=== PATIENT | male | born 1975 | race Caucasian/White ===

== ENCOUNTER 2016-04-09 23:04 | Emergency (ER) | payer MEDICARE, MEDICAID ==
[~2016-04-09] VITALS: Ht 180.3 cm; Wt 76.0 kg
[2016-04-09] MEDS ORDERED: IBUPROFEN 600 MG TAB As Ordered ONE (23:25)
[2016-04-09] MEDS ORDERED: MECLIZINE 12.5 MG TAB As Ordered ONE (23:25)
[2016-04-09] MEDS ORDERED: AUGMENTIN 875 MG TAB As Ordered ONE (23:25)
[2016-04-09] MEDS ORDERED: FLUTICASONE PROP 0.05% NASAL SPRAY 16 GM (FLONASE) SCH (23:45)
--- NOTE | 2016-04-10 00:15 | EDDOCDS ---
Physician Documentation [facility] Name: Salomon Pike Age: 41 yrs Sex: Male : 1975 Arrival Date: 04/09/2016 Time: 23:04 Bed Triage 2 Private MD: Raisa Lynch M. Disposition: 04/09/16 23:40 Discharged to Home/Self Care. Impression: Acute frontal sinusitis, Benign paroxysmal vertigo, bilateral. - Condition is Stable. - Discharge Instructions: Benign Positional Vertigo, Sinus Headache, Sinusitis, Adult. - Prescriptions for Augmentin 875- 125 mg Oral Tablet - take 1 tablet by ORAL route every 12 hours for 10 days; 20 tablet. Meclizine 25 mg Oral Tablet - take 1 tablet by ORAL route every 8 hours As needed; 30 tablet. Fluticasone 50 mcg/actuation Nasal [place], Suspension - inhale 1 spray by INTRANASAL route 2 times per day; 1 bottle. - Medication Reconciliation, Local Pharmacy Hours form. - Follow up: Raisa Lynch; When: Call to arrange an appointment; Reason: Recheck today's complaints, Continuance of care. - Problem is new. - Symptoms are unchanged. Historical: - Allergies: No known drug Allergies; - Home Meds: 1. Proventil HFA 90 mcg/actuation inhalation HFAA 2 puffs every 6 hours as needed 2. Vitamin D 2000u Oral 2000 unit daily - PMHx: none; - PSHx: Appendectomy; - Social history: Smoking status: Patient states was never smoker of tobacco. No barriers to communication noted, The patient speaks fluent German. - Family history: Not pertinent. - : The pt / caregiver states he / she is not on anticoagulants. Home medication list is obtained from the patient. - Exposure Risk Screening:: None identified. Vital Signs: 04/09 23:06 BP 173 / 86; Pulse 84; Resp 16; Temp 96.7(O); Pulse Ox 98% on R/A; Weight 76 kg / elp 167.55 lbs; Height 71 in. (180.34 cm); 23:06 Body Mass Index 23.37 (76.00 kg, 180.34 cm) elp MDM: 23:23 Ibuprofen 600 mg PO once ordered. mo1 23:23 Amoxicillin-Clavulanate 875 mg 1 tabs PO once ordered. mo1 23:23 Flonase [place] 50 mcg 2 sprays Intranasal once ordered. mo1 23:23 Meclizine 25 mg PO once ordered. mo1 23:40 Financial registration complete. hs2 Administered Medications: 23:33 Drug: Ibuprofen 600 mg [ibuprofen 600 mg tablet (1 tabs)] Route: PO; jmb 23:33 Drug: Amoxicillin-Clavulanate 1 tabs [amoxicillin 875 mg-potassium clavulanate 125 mg jmb tablet (1 tabs)] Route: PO; 23:33 Drug: Meclizine 25 mg [meclizine 12.5 mg tablet (2 tabs)] Route: PO; b 23:57 Drug: Flonase [place] 50 mcg 2 sprays Route: Intranasal; Site: both nares; b Signatures: Boom Huggins PA PA mo1 Silvano Armas RN RN elbab Anuradha Roth RN RN af2 Gilma Joyce, Reg Reg hs2 MTDD
--- NOTE | 2016-04-10 00:15 | EDDOCDS ---
Nurse's Notes [facility] Name: Salomon Pike Age: 41 yrs Sex: Male : 1975 Arrival Date: 04/09/2016 Time: 23:04 Bed Triage 2 Private MD: Raisa Lynch M. Diagnosis: Acute frontal sinusitis;Benign paroxysmal vertigo, bilateral Presentation: 04/09 23:08 Presenting complaint: Patient states: cough, "when I tried to lay down the room is af2 spinning.". Adult Sepsis Screening: The patient does not have new or worsening altered mentation. Patient's respiratory rate is less than 22. Systolic blood pressure is greater than 100. Patient has a qSOFA score of 0- Negative Sepsis Screen. Suicide/Homicide risk assessment- the patient denies having any suicidal and/or homicidal ideations and does not present with any other emotional, behavioral or mental health complaints. Status: Patient is not a it service technician or dependent. Transition of care: patient was not received from another setting of care. 23:08 Acuity: JEFFERSON Level 4 af2 23:08 Method Of Arrival: Walkin/Carried/Asstd af2 Triage Assessment: 23:10 General: Appears in no apparent distress, Behavior is cooperative. Pain: Location: af2 chest Pain currently is 10 out of 10 on a pain scale. Pt Declines HIV testing. Respiratory: Airway is patent Respiratory effort is even, unlabored. 23:11 General: pt seen for same thing on 04/02/16. af2 Historical: - Allergies: No known drug Allergies; - Home Meds: 1. Proventil HFA 90 mcg/actuation inhalation HFAA 2 puffs every 6 hours as needed 2. Vitamin D 2000u Oral 2000 unit daily - PMHx: none; - PSHx: Appendectomy; - Social history: Smoking status: Patient states was never smoker of tobacco. No barriers to communication noted, The patient speaks fluent Japanese. - Family history: Not pertinent. - : The pt / caregiver states he / she is not on anticoagulants. Home medication list is obtained from the patient. - Exposure Risk Screening:: None identified. Screenin:43 Screening information is obtained from the patient. Fall risk: No risks identified. jmb Assistance ADL's: requires no assistance with activities of daily living. Abuse/DV Screen: The patient / caregiver reports he/she is: not in a situation that causes fear, pain or injury. Nutritional screening: No deficits noted. Advance Directives: Currently, there is no health care proxy. There is no active DNR order. There is no living will. There is no Power of Homogenizer Operator. home support is adequate. Assessment: 23:43 General: Patient instructed on discharge instructions. Patient asked if there were any jmb questions regarding discharge, patient stated no. Patient signed discharge instructions. Patient discharged in stable condition. . Vital Signs: 23:06 BP 173 / 86; Pulse 84; Resp 16; Temp 96.7(O); Pulse Ox 98% on R/A; Weight 76 kg; Height elp 71 in. (180.34 cm); 23:06 Body Mass Index 23.37 (76.00 kg, 180.34 cm) el Vitals: 23:06 Log In Time: April 09, 2016 at 23:04. elp ED Course: 23:05 Patient visited by Flaquita Hanson PCA. elp 23:05 Raisa Lynch is Private Physician. elp 23:05 Patient moved to Waiting elp 23:07 Patient moved to Pre RCE elp 23:09 Triage Initiated af2 23:11 Patient visited by Anuradha Roth RN. af2 23:12 Patient moved to Triage 2 af2 23:14 [facility] mo1 23:14 Giuseppe Worthington DO is Attending Physician. mo1 23:22 Patient visited by Boom Huggins PA. mo1 23:39 Raisa Lynch is Referral Physician. mo1 23:43 The patient / caregiver is instructed regarding the plan of care and ED course. jmb 23:43 No IV's were initiated during this patient's visit. No procedures done that require jmb assistance. Administered Medications: 23:33 Drug: Ibuprofen 600 mg [ibuprofen 600 mg tablet (1 tabs)] Route: PO; jmb 23:33 Drug: Amoxicillin-Clavulanate 1 tabs [amoxicillin 875 mg-potassium clavulanate 125 mg jmb tablet (1 tabs)] Route: PO; 23:33 Drug: Meclizine 25 mg [meclizine 12.5 mg tablet (2 tabs)] Route: PO; jmb 23:57 Drug: Flonase [place] 50 mcg 2 sprays Route: Intranasal; Site: both nares; jmb Order Results: There are currently no results for this order. Outcome: 23:40 Discharge ordered by Provider. mo1 23:43 Discharge Assessment: Patient awake, alert and oriented x 3. No cognitive and/or jmb functional deficits noted. Patient verbalized understanding of disposition instructions. Patient awake and alert. obeys commands, Oriented to person, place and time. Patient verbalized understanding of disposition instructions. Patient has no functional deficits. patient administered narcotics - no. The following High Risk Discharge criteria are identified: None. Discharged to home ambulatory. Condition: stable. Discharge instructions given to patient, Instructed on discharge instructions, follow up and referral plans. Demonstrated understanding of instructions, medications, Pt was receptive of discharge instructions/ teaching. No special radiology studies were completed. Property sent home with patient. 04/10 00:15 Patient left the ED. flor Signatures: Boom Huggins PA PA mo1 Flaquita Hanson, [employer] elp Silvano ArmasRN RN Anuradha Baltazar,RN RN af2 Corrections: (The following items were deleted from the chart) 04/09 23:07 23:06 BP 173 / 86; Pulse 84bpm; Resp 16bpm; Pulse Ox 98% RA; Temp 96.7F Oral; elp elp MTDD
--- NOTE | 2016-04-12 01:15 | EDDOCDS ---
Physician Documentation [facility] Name: Salomon Pike Age: 41 yrs Sex: Male : 1975 Arrival Date: 04/09/2016 Time: 23:04 Bed Triage 2 Private MD: Raisa Lynch M. Disposition: 04/09/16 23:40 Discharged to Home/Self Care. Impression: Acute frontal sinusitis, Benign paroxysmal vertigo, bilateral. - Condition is Stable. - Discharge Instructions: Benign Positional Vertigo, Sinus Headache, Sinusitis, Adult. - Prescriptions for Augmentin 875- 125 mg Oral Tablet - take 1 tablet by ORAL route every 12 hours for 10 days; 20 tablet. Meclizine 25 mg Oral Tablet - take 1 tablet by ORAL route every 8 hours As needed; 30 tablet. Fluticasone 50 mcg/actuation Nasal [place], Suspension - inhale 1 spray by INTRANASAL route 2 times per day; 1 bottle. - Medication Reconciliation, Local Pharmacy Hours form. - Follow up: Raisa Lynch; When: Call to arrange an appointment; Reason: Recheck today's complaints, Continuance of care. - Problem is new. - Symptoms are unchanged. Historical: - Allergies: No known drug Allergies; - Home Meds: 1. Proventil HFA 90 mcg/actuation inhalation HFAA 2 puffs every 6 hours as needed 2. Vitamin D 2000u Oral 2000 unit daily - PMHx: none; - PSHx: Appendectomy; - Social history: Smoking status: Patient states was never smoker of tobacco. No barriers to communication noted, The patient speaks fluent Amharic. - Family history: Not pertinent. - : The pt / caregiver states he / she is not on anticoagulants. Home medication list is obtained from the patient. - Exposure Risk Screening:: None identified. Vital Signs: 04/09 23:06 BP 173 / 86; Pulse 84; Resp 16; Temp 96.7(O); Pulse Ox 98% on R/A; Weight 76 kg / elp 167.55 lbs; Height 71 in. (180.34 cm); 23:06 Body Mass Index 23.37 (76.00 kg, 180.34 cm) elp MDM: 23:23 Ibuprofen 600 mg PO once ordered. mo1 23:23 Amoxicillin-Clavulanate 875 mg 1 tabs PO once ordered. mo1 23:23 Flonase [place] 50 mcg 2 sprays Intranasal once ordered. mo1 23:23 Meclizine 25 mg PO once ordered. mo1 23:40 Financial registration complete. hs2 04/10 00:35 [facility] Payment Agreement was scanned into [employer] and attached to record. hs2 09:44 T-Sheet-- Draft Copy was scanned into [employer] and attached to record. se Administered Medications: 04/09 23:33 Drug: Ibuprofen 600 mg [ibuprofen 600 mg tablet (1 tabs)] Route: PO; b 23:33 Drug: Amoxicillin-Clavulanate 1 tabs [amoxicillin 875 mg-potassium clavulanate 125 mg jmb tablet (1 tabs)] Route: PO; 23:33 Drug: Meclizine 25 mg [meclizine 12.5 mg tablet (2 tabs)] Route: PO; b 23:57 Drug: Flonase [place] 50 mcg 2 sprays Route: Intranasal; Site: both nares; b Signatures: Boom Huggins PA PA mo1 Silvano ArmasRN RN elbab Anuradha Roth RN RN af2 Gilma Joyce, Reg Reg hs2 Prema Kline [facility] The chart was reviewed and I authenticate all verbal orders and agree with the evaluation and treatment provided.Attachments: 04/10 00:35 [facility] Payment Agreement hs2 09:44 T-Sheet-- Draft Copy [facility] Chart Complete MTDD
--- NOTE | 2016-04-12 01:15 | EDDOCDS ---
Physician Documentation [facility] Name: Salomon Piek Age: 41 yrs Sex: Male : 1975 Arrival Date: 04/09/2016 Time: 23:04 Bed Triage 2 Private MD: Raisa Lynch M. Disposition: 04/09/16 23:40 Discharged to Home/Self Care. Impression: Acute frontal sinusitis, Benign paroxysmal vertigo, bilateral. - Condition is Stable. - Discharge Instructions: Benign Positional Vertigo, Sinus Headache, Sinusitis, Adult. - Prescriptions for Augmentin 875- 125 mg Oral Tablet - take 1 tablet by ORAL route every 12 hours for 10 days; 20 tablet. Meclizine 25 mg Oral Tablet - take 1 tablet by ORAL route every 8 hours As needed; 30 tablet. Fluticasone 50 mcg/actuation Nasal [place], Suspension - inhale 1 spray by INTRANASAL route 2 times per day; 1 bottle. - Medication Reconciliation, Local Pharmacy Hours form. - Follow up: Raisa Lynch; When: Call to arrange an appointment; Reason: Recheck today's complaints, Continuance of care. - Problem is new. - Symptoms are unchanged. Historical: - Allergies: No known drug Allergies; - Home Meds: 1. Proventil HFA 90 mcg/actuation inhalation HFAA 2 puffs every 6 hours as needed 2. Vitamin D 2000u Oral 2000 unit daily - PMHx: none; - PSHx: Appendectomy; - Social history: Smoking status: Patient states was never smoker of tobacco. No barriers to communication noted, The patient speaks fluent Sami. - Family history: Not pertinent. - : The pt / caregiver states he / she is not on anticoagulants. Home medication list is obtained from the patient. - Exposure Risk Screening:: None identified. Vital Signs: 04/09 23:06 BP 173 / 86; Pulse 84; Resp 16; Temp 96.7(O); Pulse Ox 98% on R/A; Weight 76 kg / elp 167.55 lbs; Height 71 in. (180.34 cm); 23:06 Body Mass Index 23.37 (76.00 kg, 180.34 cm) elp MDM: 23:23 Ibuprofen 600 mg PO once ordered. mo1 23:23 Amoxicillin-Clavulanate 875 mg 1 tabs PO once ordered. mo1 23:23 Flonase [place] 50 mcg 2 sprays Intranasal once ordered. mo1 23:23 Meclizine 25 mg PO once ordered. mo1 23:40 Financial registration complete. hs2 04/10 00:35 [facility] Payment Agreement was scanned into [employer] and attached to record. hs2 09:44 T-Sheet-- Draft Copy was scanned into [employer] and attached to record. se Administered Medications: 04/09 23:33 Drug: Ibuprofen 600 mg [ibuprofen 600 mg tablet (1 tabs)] Route: PO; b 23:33 Drug: Amoxicillin-Clavulanate 1 tabs [amoxicillin 875 mg-potassium clavulanate 125 mg jmb tablet (1 tabs)] Route: PO; 23:33 Drug: Meclizine 25 mg [meclizine 12.5 mg tablet (2 tabs)] Route: PO; b 23:57 Drug: Flonase [place] 50 mcg 2 sprays Route: Intranasal; Site: both nares; b Signatures: Boom Huggins PA PA mo1 Silvano ArmasRN RN elbab Anuradha Roth RN RN af2 Gilma Joyce, Reg Reg hs2 Prema Kline [facility] The chart was reviewed and I authenticate all verbal orders and agree with the evaluation and treatment provided.Attachments: 04/10 00:35 [facility] Payment Agreement hs2 09:44 T-Sheet-- Draft Copy [facility] Chart Complete MTDD
--- NOTE | 2016-04-12 01:16 | EDDOCDS ---
Nurse's Notes [facility] Name: Salomon Pike Age: 41 yrs Sex: Male : 1975 Arrival Date: 04/09/2016 Time: 23:04 Bed Triage 2 Private MD: Raisa Lynch M. Diagnosis: Acute frontal sinusitis;Benign paroxysmal vertigo, bilateral Presentation: 04/09 23:08 Presenting complaint: Patient states: cough, "when I tried to lay down the room is af2 spinning.". Adult Sepsis Screening: The patient does not have new or worsening altered mentation. Patient's respiratory rate is less than 22. Systolic blood pressure is greater than 100. Patient has a qSOFA score of 0- Negative Sepsis Screen. Suicide/Homicide risk assessment- the patient denies having any suicidal and/or homicidal ideations and does not present with any other emotional, behavioral or mental health complaints. Status: Patient is not a loan service officer or dependent. Transition of care: patient was not received from another setting of care. 23:08 Acuity: JEFFERSON Level 4 af2 23:08 Method Of Arrival: Walkin/Carried/Asstd af2 Triage Assessment: 23:10 General: Appears in no apparent distress, Behavior is cooperative. Pain: Location: af2 chest Pain currently is 10 out of 10 on a pain scale. Pt Declines HIV testing. Respiratory: Airway is patent Respiratory effort is even, unlabored. 23:11 General: pt seen for same thing on 04/02/16. af2 Historical: - Allergies: No known drug Allergies; - Home Meds: 1. Proventil HFA 90 mcg/actuation inhalation HFAA 2 puffs every 6 hours as needed 2. Vitamin D 2000u Oral 2000 unit daily - PMHx: none; - PSHx: Appendectomy; - Social history: Smoking status: Patient states was never smoker of tobacco. No barriers to communication noted, The patient speaks fluent Maltese. - Family history: Not pertinent. - : The pt / caregiver states he / she is not on anticoagulants. Home medication list is obtained from the patient. - Exposure Risk Screening:: None identified. Screenin:43 Screening information is obtained from the patient. Fall risk: No risks identified. jmb Assistance ADL's: requires no assistance with activities of daily living. Abuse/DV Screen: The patient / caregiver reports he/she is: not in a situation that causes fear, pain or injury. Nutritional screening: No deficits noted. Advance Directives: Currently, there is no health care proxy. There is no active DNR order. There is no living will. There is no Power of Mobile Ui Developer. home support is adequate. Assessment: 23:43 General: Patient instructed on discharge instructions. Patient asked if there were any jmb questions regarding discharge, patient stated no. Patient signed discharge instructions. Patient discharged in stable condition. . Vital Signs: 23:06 BP 173 / 86; Pulse 84; Resp 16; Temp 96.7(O); Pulse Ox 98% on R/A; Weight 76 kg; Height elp 71 in. (180.34 cm); 23:06 Body Mass Index 23.37 (76.00 kg, 180.34 cm) el Vitals: 23:06 Log In Time: April 09, 2016 at 23:04. elp ED Course: 23:05 Patient visited by Flaquita Hanson PCA. elp 23:05 Raisa Lynch is Private Physician. elp 23:05 Patient moved to Waiting elp 23:07 Patient moved to Pre RCE elp 23:09 Triage Initiated af2 23:11 Patient visited by Anuradha Roth RN. af2 23:12 Patient moved to Triage 2 af2 23:14 [facility]gins [facility] mo1 23:14 Giuseppe Worthington DO is Attending Physician. mo1 23:22 Patient visited by Boom Huggins PA. mo1 23:39 Raisa Lynch is Referral Physician. mo1 23:43 The patient / caregiver is instructed regarding the plan of care and ED course. jmb 23:43 No IV's were initiated during this patient's visit. No procedures done that require jmb assistance. 04/10 00:35 [facility] [place] Agreement was scanned into [email or web address] and attached to record. hs2 09:44 T-Sheet-- Draft Copy was scanned into [email or web address] and attached to record. [facility] Administered Medications: 04/09 23:33 Drug: Ibuprofen 600 mg [ibuprofen 600 mg tablet (1 tabs)] Route: PO; jmb 23:33 Drug: Amoxicillin-Clavulanate 1 tabs [amoxicillin 875 mg-potassium clavulanate 125 mg jmb tablet (1 tabs)] Route: PO; 23:33 Drug: Meclizine 25 mg [meclizine 12.5 mg tablet (2 tabs)] Route: PO; jmb 23:57 Drug: Flonase [place] 50 mcg 2 sprays Route: Intranasal; Site: both nares; jmb Order Results: There are currently no results for this order. Outcome: 23:40 Discharge ordered by Provider. mo1 23:43 Discharge Assessment: Patient awake, alert and oriented x 3. No cognitive and/or jmb functional deficits noted. Patient verbalized understanding of disposition instructions. Patient awake and alert. obeys commands, Oriented to person, place and time. Patient verbalized understanding of disposition instructions. Patient has no functional deficits. patient administered narcotics - no. The following High Risk Discharge criteria are identified: None. Discharged to home ambulatory. Condition: stable. Discharge instructions given to patient, Instructed on discharge instructions, follow up and referral plans. Demonstrated understanding of instructions, medications, Pt was receptive of discharge instructions/ teaching. No special radiology studies were completed. Property sent home with patient. 04/10 00:15 Patient left the ED. jmb Signatures: Boom Huggins PA PA mo1 Flaquita Hanson, AREA REPRESENTATIVE AREA REPRESENTATIVE elp Silvano Armas RN RN elbab Anuradha Roth RN RN af2 Gilma Joyce, Reg Reg hs2 Prema Kline Corrections: (The following items were deleted from the chart) 04/09 23:07 23:06 BP 173 / 86; Pulse 84bpm; Resp 16bpm; Pulse Ox 98% RA; Temp 96.7F Oral; elp elp Chart Complete MTDD
== END 2016-04-10 00:15 | disposition home or self-care (01) ==
LOC: M ED 23:04
DX: J01.10 Acute frontal sinusitis, unspecified (principal); H81.49 Vertigo of central origin, unspecified ear; Z79.51 Long term (current) use of inhaled steroids; Z79.899 Other long term (current) drug therapy

== ENCOUNTER 2016-04-25 01:40 | Emergency (ER) | payer MEDICARE, MEDICAID ==
[2016-04-25] MEDS ORDERED: KETOROLAC 30 MG/ML VIAL (J1885) As Ordered ONE (02:34)
[2016-04-25] MEDS ORDERED: ONDANSETRON 4MG/2ML VIAL (J2405) As Ordered ONE (02:34)
[2016-04-25 02:57] LABS: BASO % 0.3 % (0.0-1.0); EOS # 0.2 K/mm3 (0.0-0.50); EOS % 1.8 % (0.0-3.0); LARGE UNSTAINED CELL # 0.1 K/mm3 (0.0-0.4); LYMPH # 1.3 K/mm3 (1.5-4.5); LYMPH % 11.7 % (24.0-44.0); MEAN CORPUSCULAR HEMOGLOBIN 30.2 pg (27.0-33.0); MEAN CORPUSCULAR VOLUME 86.2 fl (80.0-96.0); MONO # 0.5 K/mm3 (0.0-0.8); MONO % 4.6 % (0.0-5.0); NEUTROPHILS # 9.1 K/mm3 (1.8-7.7); NEUTROPHILS % 80.7 % (36.0-66.0); PLATELET COUNT, AUTOMATED 243 k/mm3 (150-450); RED CELL DISTRIBUTION WIDTH 12.5 % (11.5-14.5); WHITE BLOOD COUNT 11.3 K/mm3 (4.0-10.0)
[2016-04-25 03:13] LABS: ALBUMIN 4.1 GM/DL (3.2-5.2); ALBUMIN/GLOBULIN RATIO 1.46 (1.00-1.93); ALKALINE PHOSPHATASE 80 U/L (45-117); ALT/SGPT 54 U/L (12-78); AMYLASE 52 U/L (25-115); ANION GAP 9 MEQ/L (8-16); AST/SGOT 16 U/L (15-37); BILIRUBIN,DIRECT 0.1 MG/DL (0.0-0.2); BILIRUBIN,TOTAL 0.3 MG/DL (0.2-1.0); BLOOD UREA NITROGEN 9 MG/DL (7-18); CALCIUM LEVEL 8.7 MG/DL (8.5-10.1); CARBON DIOXIDE LEVEL 26 MEQ/L (21-32); CHLORIDE LEVEL 109 MEQ/L (98-107); CREATININE FOR GFR 0.87 MG/DL (0.70-1.30); GLOMERULAR FILTRATION RATE > 60.0 (>60); GLUCOSE, FASTING 119 MG/DL (70-105); POTASSIUM SERUM 4.1 MEQ/L (3.5-5.1); SODIUM LEVEL 144 MEQ/L (136-145); TOTAL PROTEIN 6.9 GM/DL (6.4-8.2)
[2016-04-25] MEDS ORDERED: ISOVUE-370 76% 100ML VIAL (Q9967) As Ordered ONE (04:42)
--- NOTE | 2016-04-25 05:30 | REPUSA ---
CLINICAL HISTORY: Abdominal pain. TECHNIQUE: Multiple axial, sagittal and coronal CT images were obtained through the abdomen and pelvi s after administration of intravenous contrast material. COMMENTS: The liver is of decreased attenuation without mass or defect. There is no intra or extrahepatic bilia ry ductal dilatation. The spleen is normal. The gallbladder is within normal limits. The pancreas is of normal contour and attenuation characteristics. There is no evidence of adrenal mass. Both kidneys demonstrate prompt and equal nephrograms. The kidneys are normal in size, shape and conf iguration. There is no evidence of renal or ureteral mass. No renal or ureteral calculi are identifie d. There is no hydroureter or hydronephrosis. No evidence for appendicitis. There is no bowel wall thickening. No evidence for small or large kari l obstruction. There is no evidence of abdominal ascites or lymphadenopathy. There is no evidence of intrinsic or extrinsic bladder mass. There is no pelvic ascites or lymphadeno you. Mildly distended bladder. Mild prostatomegaly. Images of the lung bases show no evidence of pleural or parenchymal mass. There are no pleural effusi ons. The bony structures are free of lytic or blastic lesions. Multilevel degenerative changes are seen in volving the thoracolumbar spine. Scattered calcifications are seen involving the aorta and major bran ches compatible with atherosclerosis. IMPRESSION: Fatty liver infiltration. Mildly distended bladder. Mesenteric panniculitis. Thank you for your kind referral of this patient.
--- NOTE | 2016-04-25 06:19 | EDDOCDS ---
Nurse's Notes [facility] Name: Salomon Pike Age: 41 yrs Sex: Male : 1975 Arrival Date: 04/25/2016 Time: 01:40 Bed 12 Private MD: Diagnosis: Noninfective gastroenteritis and colitis, unspecified Presentation: 04/25 02:01 Presenting complaint: Patient states: Hot and cold chills. Vomited X2 since 0000. kmg1 Suicide/Homicide risk assessment- the patient denies having any suicidal and/or homicidal ideations and does not present with any other emotional, behavioral or mental health complaints. 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 Transition of care: patient was not received from another setting of care. 02:01 Acuity: [place] Level 4 [facility] 02:01 Method Of Arrival: Walkin/Carried/Asstd [facility] 02:27 Acuity level changed due to complexity of care. 1 02:27 Acuity: JEFFERSON Level 3 lf1 Triage Assessment: 02:03 General: Appears in no apparent distress, comfortable, Behavior is appropriate for age, kmg1 cooperative, pleasant. Pain: Denies pain. HIV screening NA for this visit Offered previously. GI: Reports nausea, vomiting. Historical: - Allergies: No known drug Allergies; - Home Meds: 1. Proventil HFA 90 mcg/actuation inhalation HFAA 2 puffs every 6 hours as needed 2. Vitamin D 2000u Oral 2000 unit daily - PMHx: Asthma; - PSHx: Appendectomy; ORIF Right Ankle; Fx left great toe; - Social history: Smoking status: Patient states was never smoker of tobacco. No barriers to communication noted, The patient speaks fluent Icelandic, Speaks appropriately for age. - Family history: Not pertinent, No immediate family members are acutely ill. - : The pt / caregiver states he / she is not on anticoagulants. Home medication list is obtained from the patient. - Exposure Risk Screening:: None identified. Screenin:45 Screening information is obtained from the patient. Fall risk: No risks identified. lf1 Assistance ADL's: requires no assistance with activities of daily living. Abuse/DV Screen: The patient / caregiver reports he/she is: not in a situation that causes fear, pain or injury. Nutritional screening: No deficits noted. Advance Directives: Currently, there is no health care proxy. home support is adequate. Assessment: 02:45 Adult Sepsis Screening: The patient does not have new or worsening altered mentation. lf1 Patient's respiratory rate is less than 22. Systolic blood pressure is greater than 100. Patient has a qSOFA score of 0- Negative Sepsis Screen. General: Appears in no apparent distress, comfortable, Behavior is cooperative. Pain: Location: abdomen Pain currently is 5 out of 10 on a pain scale. Neurological: Level of Consciousness is awake, alert. Respiratory: Respiratory effort is even, unlabored. GI: Abdomen is non- distended Bowel sounds present X 4 quads. Abd is soft Abd is non tender Reports lower abdominal pain, upper abdominal pain, nausea, vomiting. Derm: Skin is normal. 03:48 General: Appears in no apparent distress, comfortable, Behavior is appropriate for age, kmg1 cooperative. Pain: Location: head Pain currently is 10 out of 10 on a pain scale. Quality of pain is described as aching. GI: other No vomiting since arrival. 06:15 General: Appears in no apparent distress, Discharge instructions reviewed with pt sls1 including follow up care, clear liquid diet, and medication use, pt verbalizes understanding. Pain: Denies pain. Neurological: No deficits noted. Respiratory: No deficits noted. Vital Signs: 02:03 BP 155 / 88; Pulse 97; Resp 18; Temp 97.7(O); Pulse Ox 94% on R/A; Weight 80.74 kg (M); [facility] Height 71 in. (180.34 cm) (M); Pain 0/10; 06:08 BP 124 / 70; Pulse 75; Resp 18; Temp 98.6(TE); Pulse Ox 96% on R/A; Pain 0/10; nargis 02:03 Body Mass Index 24.83 (80.74 kg, 180.34 cm) [facility] Vitals: 02:03 Log In Time: April 25, 2016 at 01:42. [facility] ED Course: 01:41 Patient visited by Gilma Joyce Reg. hs2 01:41 Patient moved to Waiting hs2 02:02 Triage Initiated [facility] 02:08 Geronimo Billings RPA-C is PHCP. ck7 02:08 Giuseppe Worthington DO is Attending Physician. ck7 02:08 Patient visited by Kwaczala, Christopher, RPA-C. ck7 02:08 Patient moved to I2 / M2 km 02:45 Patient visited by Juana Wing, Solderer Assembler. [facility] 02:45 The patient / caregiver is instructed regarding the plan of care and ED course. 1 02:45 Inserted saline lock: 20 gauge in right antecubital area and blood collected. The lf1 patient tolerated the procedure well. Labs drawn. (by ED staff). Sent per order to lab. Urine collected. Clean catch specimen. 02:50 Patient visited by Tamara Boggs RN. lf1 03:01 Patient moved to 12 jl 03:49 Patient visited by Aysha Gutierrez RN. km 03:53 [facility] Payment Agreement was scanned into [employer] and attached to record. slh 05:16 Patient visited by Daly Day PCA. nargis 05:52 CT ABD & PELVIS: IV Contrast Only Returned. EDMS 06:09 Patient visited by Daly Day PCA. nargis 06:15 Discontinued lock intact, bleeding controlled, pressure dressing applied, No sls1 redness/swelling at site. No procedures done that require assistance. Administered Medications: 02:37 Drug: NS 0.9% 1000 ml [sodium chloride 0.9 % intravenous solution] Route: IV; Rate: slm bolus; Site: right antecubital; 06:17 Follow up: IV Status: Completed infusion [facility] 02:50 Drug: Ondansetron 4 mg [ondansetron HCl 2 mg/mL intravenous solution (2 mL)] Route: [facility] IVP; Site: right antecubital; 02:50 Drug: ketorolac 30 mg [ketorolac 30 mg/mL (1 mL) injection solution (1 mL)] Route: IVP; [facility] Site: right antecubital; Order Results: Lab Order: Amylase; SPEC'M 04/25/16 02:33 Test: AMYLASE; Value: 52; Range: 25-115; Units: U/L; Status: F Lab Order: Basic Metabolic Profile; SPEC'M 04/25/16 02:33 Test: GLUCOSE, FASTING; Value: 119; Range: 70-105; Abnormal: Above high normal; Units: MG/DL; Status: F Test: BLOOD UREA NITROGEN; Value: 9; Range: 7-18; Units: MG/DL; Status: F Test: CREATININE FOR GFR; Value: 0.87; Range: 0.70-1.30; Units: MG/DL; Status: F Test: GLOMERULAR FILTRATION RATE; Value: > 60.0; Range: >60; Status: F Test: SODIUM LEVEL; Value: 144; Range: 136-145; Units: MEQ/L; Status: F Test: POTASSIUM SERUM; Value: 4.1; Range: 3.5-5.1; Units: MEQ/L; Status: F Test: CHLORIDE LEVEL; Value: 109; Range: 98-107; Abnormal: Above high normal; Units: MEQ/L; Status: F Test: CARBON DIOXIDE LEVEL; Value: 26; Range: 21-32; Units: MEQ/L; Status: F Test: ANION GAP; Value: 9; Range: 8-16; Units: MEQ/L; Status: F Test: CALCIUM LEVEL; Value: 8.7; Range: 8.5-10.1; Units: MG/DL; Status: F Test Note: ; Units are mL/min/1.73 m2 Chronic Kidney Disease Staging per NKF: Stage I & II GFR >=60 Normal to Mildly Decreased Stage III GFR 30-59 Moderately Decreased Stage IV GFR 15-29 Severely Decreased Stage V GFR <15 Very Little GFR Left ESRD GFR <15 on IRON CASTER Lab Order: CBC with Diff; SPEC'M 04/25/16 02:33 Test: WHITE BLOOD COUNT; Value: 11.3; Range: 4.0-10.0; Abnormal: Above high normal; Units: K/mm3; Status: F Test: RED BLOOD COUNT; Value: 5.35; Range: 4.30-6.10; Units: M/mm3; Status: F Test: HEMOGLOBIN; Value: 16.2; Range: 14.0-18.0; Units: g/dl; Status: F Test: HEMATOCRIT; Value: 46.1; Range: 42.0-52.0; Units: %; Status: F Test: MEAN CORPUSCULAR VOLUME; Value: 86.2; Range: 80.0-96.0; Units: fl; Status: F Test: MEAN CORPUSCULAR HEMOGLOBIN; Value: 30.2; Range: 27.0-33.0; Units: pg; Status: F Test: MEAN CORPUSCULAR HGB CONC; Value: 35.0; Range: 32.0-36.5; Units: g/dl; Status: F Test: RED CELL DISTRIBUTION WIDTH; Value: 12.5; Range: 11.5-14.5; Units: %; Status: F Test: PLATELET COUNT, AUTOMATED; Value: 243; Range: 150-450; Units: k/mm3; Status: F Test: NEUTROPHILS %; Value: 80.7; Range: 36.0-66.0; Abnormal: Above high normal; Units: %; Status: F Test: LYMPH %; Value: 11.7; Range: 24.0-44.0; Abnormal: Below low normal; Units: %; Status: F Test: MONO %; Value: 4.6; Range: 0.0-5.0; Units: %; Status: F Test: EOS %; Value: 1.8; Range: 0.0-3.0; Units: %; Status: F Test: BASO %; Value: 0.3; Range: 0.0-1.0; Units: %; Status: F Test: LARGE UNSTAINED CELL %; Value: 1.0; Range: 0.0-4.0; Units: %; Status: F Test: NEUTROPHILS #; Value: 9.1; Range: 1.8-7.7; Abnormal: Above high normal; Units: K/mm3; Status: F Test: LYMPH #; Value: 1.3; Range: 1.5-4.5; Abnormal: Below low normal; Units: K/mm3; Status: F Test: MONO #; Value: 0.5; Range: 0.0-0.8; Units: K/mm3; Status: F Test: EOS #; Value: 0.2; Range: 0.0-0.50; Units: K/mm3; Status: F Test: BASO #; Value: 0.0; Range: 0.0-0.2; Units: K/mm3; Status: F Test: LARGE UNSTAINED CELL #; Value: 0.1; Range: 0.0-0.4; Units: K/mm3; Status: F Lab Order: Lipase; SPEC'M 04/25/16 02:33 Test: LIPASE; Value: 130; Range: 73-393; Units: U/L; Status: F Lab Order: Liver Profile; SPEC'M 04/25/16 02:33 Test: AST/SGOT; Value: 16; Range: 15-37; Units: U/L; Status: F Test: ALT/SGPT; Value: 54; Range: 12-78; Units: U/L; Status: F Test: ALKALINE PHOSPHATASE; Value: 80; Range: 45-117; Units: U/L; Status: F Test: BILIRUBIN,TOTAL; Value: 0.3; Range: 0.2-1.0; Units: MG/DL; Status: F Test: BILIRUBIN,DIRECT; Value: 0.1; Range: 0.0-0.2; Units: MG/DL; Status: F Test: TOTAL PROTEIN; Value: 6.9; Range: 6.4-8.2; Units: GM/DL; Status: F Test: ALBUMIN; Value: 4.1; Range: 3.2-5.2; Units: GM/DL; Status: F Test: ALBUMIN/GLOBULIN RATIO; Value: 1.46; Range: 1.00-1.93; Status: F Lab Order: Urinalysis; SPEC'M 04/25/16 02:29 Test: APPEARANCE, URINE; Value: HAZY; Range: CLEAR; Status: F Test: COLOR, URINE; Value: YELLOW; Range: YELLOW; Status: F Test: PH,URINE; Value: 5.0; Range: 5.0-9.0; Units: UNITS; Status: F Test: SPECIFIC GRAVITY URINE AUTO; Value: 1.024; Range: 1.002-1.035; Status: F Test: PROTEIN, URINE AUTO; Value: NEGATIVE; Range: NEGATIVE; Units: mg/dL; Status: F Test: GLUCOSE, URINE (UA) AUTO; Value: NEGATIVE; Range: NEGATIVE; Units: mg/dL; Status: F Test: KETONE, URINE AUTO; Value: NEGATIVE; Range: NEGATIVE; Units: mg/dL; Status: F Test: UROBILINOGEN, URINE AUTO; Value: 0.2; Range: 0.0-2.0; Units: mg/dL; Status: F Test: BILIRUBIN, URINE AUTO; Value: NEGATIVE; Range: NEGATIVE; Status: F Test: NITRITE, URINE AUTO; Value: NEGATIVE; Range: NEGATIVE; Status: F Test: LEUKOCYTE ESTERASE, URINE AUTO; Value: NEGATIVE; Range: NEGATIVE; Status: F Test: BLOOD, URINE BLOOD; Value: NEGATIVE; Range: NEGATIVE; Status: F Test: WBC, URINE AUTO; Value: 3; Range: 0-3; Units: /HPF; Status: F Test: RBC, URINE AUTO; Value: 4; Range: 0-3; Abnormal: Above high normal; Units: /HPF; Status: F Test: BACTERIA, URINE AUTO; Value: NEGATIVE; Range: NEGATIVE; Status: F Test: SQUAMOUS EPITHELIAL CELL UR AU; Value: 0; Range: 0-6; Units: /HPF; Status: F Test: MUCUS, URINE; Value: MODERATE; Range: NEGATIVE; Status: F Test: HYALINE CAST, URINE AUTO; Value: 0; Range: 0-1; Units: /LPF; Status: F Radiology Order: CT ABD & PELVIS: IV Contrast Only Test: CT ABD & PELVIS: IV Contrast Only REASON FOR EXAMINATION: Appendicitis; ; CLINICAL HISTORY: Abdominal pain.; TECHNIQUE: Multiple axial, sagittal and coronal CT images were obtained through the abdomen and pelvi; s after administration of intravenous contrast material.; COMMENTS:; The liver is of decreased attenuation without mass or defect. There is no intra or extrahepatic bilia; ry ductal dilatation. The spleen is normal. The gallbladder is within normal limits. The pancreas is; of normal contour and attenuation characteristics. There is no evidence of adrenal mass.; Both kidneys demonstrate prompt and equal nephrograms. The kidneys are normal in size, shape and conf; iguration. There is no evidence of renal or ureteral mass. No renal or ureteral calculi are identifie; d. There is no hydroureter or hydronephrosis.; No evidence for appendicitis. There is no bowel wall thickening. No evidence for small or large kari; l obstruction. There is no evidence of abdominal ascites or lymphadenopathy.; There is no evidence of intrinsic or extrinsic bladder mass. There is no pelvic ascites or lymphadeno; you. Mildly distended bladder. Mild prostatomegaly.; Images of the lung bases show no evidence of pleural or parenchymal mass. There are no pleural effusi; ons.; The bony structures are free of lytic or blastic lesions. Multilevel degenerative changes are seen in; volving the thoracolumbar spine. Scattered calcifications are seen involving the aorta and major bran; ches compatible with atherosclerosis.; IMPRESSION:; Fatty liver infiltration.; Mildly distended bladder.; Mesenteric panniculitis.; Thank you for your kind referral of this patient.; ; Outcome: 06:04 Discharge ordered by Provider. cs11 06:15 Discharge Assessment: Patient awake, alert and oriented x 3. No cognitive and/or sls1 functional deficits noted. Patient verbalized understanding of disposition instructions. patient administered narcotics - no. The following High Risk Discharge criteria are identified: None. Discharged to home ambulatory. Condition: stable. Discharge instructions given to patient, Instructed on discharge instructions, follow up and referral plans. medication usage, diet, Demonstrated understanding of instructions, medications, Pt was receptive of discharge instructions/ teaching. Prescriptions given X 1. CT Study completed. 06:18 Patient left the ED. [facility] Signatures: Dispatcher [employer] EDMS Aysha Gutierrez, RN RN [facility] Tamara BoggsRN RN lf1 Daly Day, CRITICAL CARE SPECIALIST CRITICAL CARE SPECIALIST Nataliia Gibbs RN RN sls1 Geronimo Billings, RPA-C RPA-Cck7 Giuseppe Worthington, DO cs11 Mary Dailey,ENTERPRISE INTEGRATION ARCHITECT ENTERPRISE INTEGRATION ARCHITECT slJuana Graff, Solderer Assembler Unit Wanda Perez Hillary, Reg Reg hs2 Corrections: (The following items were deleted from the chart) 03:58 03:48 Pain: Pain currently is 2 out of 10 on a pain scale. [facility] kmg1 MTDD
--- NOTE | 2016-04-25 06:19 | EDDOCDS ---
Physician Documentation [facility] Name: Salomon Pike Age: 41 yrs Sex: Male : 1975 Arrival Date: 04/25/2016 Time: 01:40 Bed 12 Private MD: Disposition: 04/25/16 06:04 Discharged to Home/Self Care. Impression: Noninfective gastroenteritis and colitis, unspecified. - Condition is Stable. - Discharge Instructions: Clear Liquid Diet. - Prescriptions for Zofran 4 mg Oral Tablet - take 1 tablet by ORAL route 4 times per day As needed; 10 tablet. - Medication Reconciliation, Local Pharmacy Hours form. - Follow up: Private Physician; When: Call to arrange an appointment; Reason: Recheck today's complaints. - Problem is new. - Symptoms have improved. Historical: - Allergies: No known drug Allergies; - Home Meds: 1. Proventil HFA 90 mcg/actuation inhalation HFAA 2 puffs every 6 hours as needed 2. Vitamin D 2000u Oral 2000 unit daily - PMHx: Asthma; - PSHx: Appendectomy; ORIF Right Ankle; Fx left great toe; - Social history: Smoking status: Patient states was never smoker of tobacco. No barriers to communication noted, The patient speaks fluent Estonian, Speaks appropriately for age. - Family history: Not pertinent, No immediate family members are acutely ill. - : The pt / caregiver states he / she is not on anticoagulants. Home medication list is obtained from the patient. - Exposure Risk Screening:: None identified. Vital Signs: 04/25 02:03 BP 155 / 88; Pulse 97; Resp 18; Temp 97.7(O); Pulse Ox 94% on R/A; Weight 80.74 kg / kmg1 178 lbs (M); Height 71 in. (180.34 cm) (M); Pain 0/10; 06:08 BP 124 / 70; Pulse 75; Resp 18; Temp 98.6(TE); Pulse Ox 96% on R/A; Pain 0/10; nargis 02:03 Body Mass Index 24.83 (80.74 kg, 180.34 cm) kmg1 MDM: 02:15 Undress patient appropriately for examination ordered. ck7 02:15 IV Saline Lock ordered. ck7 02:15 NS 0.9% 1000 ml IV at bolus once ordered. ck7 02:15 Ondansetron 4 mg IVP once ordered. ck7 02:15 ketorolac 30 mg IVP once ordered. ck7 02:16 Amylase Ordered. EDMS 02:16 Basic Metabolic Profile Ordered. EDMS 02:16 CBC with Diff Ordered. EDMS 02:16 Lipase Ordered. EDMS 02:16 Liver Profile Ordered. EDMS 02:16 Urinalysis Ordered. EDMS 02:16 Urine Culture Ordered. EDMS 02:16 NOTHING BY MOUTH+DIET ordered. EDMS 03:05 CBC with Diff Reviewed. ck7 03:18 Financial registration complete. [facility] 03:53 [facility] Payment Agreement was scanned into [employer] and attached to record. [facility] 03:56 Basic Metabolic Profile Reviewed. [facility] 03:56 Urinalysis Reviewed. 11 03:56 Amylase Reviewed. cs11 03:56 Lipase Reviewed. cs11 03:56 Liver Profile Reviewed. cs11 04:03 CT ABD & PELVIS: IV Contrast Only Ordered. EDMS Administered Medications: 02:37 Drug: NS 0.9% 1000 ml [sodium chloride 0.9 % intravenous solution] Route: IV; Rate: slm bolus; Site: right antecubital; 06:17 Follow up: IV Status: Completed infusion [facility] 02:50 Drug: Ondansetron 4 mg [ondansetron HCl 2 mg/mL intravenous solution (2 mL)] Route: lf1 IVP; Site: right antecubital; 02:50 Drug: ketorolac 30 mg [ketorolac 30 mg/mL (1 mL) injection solution (1 mL)] Route: IVP; lf1 Site: right antecubital; Signatures: [facility] Aysha Gutierrez, RN RN [facility] Nataliia Solo RN RN [facility] Geronimo Billings, RPA-C RPA-Cck7 Giuseppe Worthington, DO cs11 Wanda Avila [facility] Tamara Boggs RN [facility] Mary Dailey LPN [facility] The chart was reviewed and I authenticate all verbal orders and agree with the evaluation and treatment provided.Attachments: 03:53 [facility] Payment Agreement [facility] MTDD
--- NOTE | 2016-04-27 07:18 | EDDOCDS ---
Nurse's Notes [facility] Name: Salomon Pike Age: 41 yrs Sex: Male : 1975 Arrival Date: 04/25/2016 Time: 01:40 Bed 12 Private MD: Diagnosis: Noninfective gastroenteritis and colitis, unspecified Presentation: 04/25 02:01 Presenting complaint: Patient states: Hot and cold chills. Vomited X2 since 0000. kmg1 Suicide/Homicide risk assessment- the patient denies having any suicidal and/or homicidal ideations and does not present with any other emotional, behavioral or mental health complaints. Status: Patient is not a relocation services specialist or dependent. Transition of care: patient was not received from another setting of care. 02:01 Acuity: JEFFERSON Level 4 [facility] 02:01 Method Of Arrival: Walkin/Carried/Asstd [facility] 02:27 Acuity level changed due to complexity of care. 1 02:27 Acuity: JEFFERSON Level 3 lf1 Triage Assessment: 02:03 General: Appears in no apparent distress, comfortable, Behavior is appropriate for age, kmg1 cooperative, pleasant. Pain: Denies pain. HIV screening NA for this visit Offered previously. GI: Reports nausea, vomiting. Historical: - Allergies: No known drug Allergies; - Home Meds: 1. Proventil HFA 90 mcg/actuation inhalation HFAA 2 puffs every 6 hours as needed 2. Vitamin D 2000u Oral 2000 unit daily - PMHx: Asthma; - PSHx: Appendectomy; ORIF Right Ankle; Fx left great toe; - Social history: Smoking status: Patient states was never smoker of tobacco. No barriers to communication noted, The patient speaks fluent Bulgarian, Speaks appropriately for age. - Family history: Not pertinent, No immediate family members are acutely ill. - : The pt / caregiver states he / she is not on anticoagulants. Home medication list is obtained from the patient. - Exposure Risk Screening:: None identified. Screenin:45 Screening information is obtained from the patient. Fall risk: No risks identified. lf1 Assistance ADL's: requires no assistance with activities of daily living. Abuse/DV Screen: The patient / caregiver reports he/she is: not in a situation that causes fear, pain or injury. Nutritional screening: No deficits noted. Advance Directives: Currently, there is no health care proxy. home support is adequate. Assessment: 02:45 Adult Sepsis Screening: The patient does not have new or worsening altered mentation. lf1 Patient's respiratory rate is less than 22. Systolic blood pressure is greater than 100. Patient has a qSOFA score of 0- Negative Sepsis Screen. General: Appears in no apparent distress, comfortable, Behavior is cooperative. Pain: Location: abdomen Pain currently is 5 out of 10 on a pain scale. Neurological: Level of Consciousness is awake, alert. Respiratory: Respiratory effort is even, unlabored. GI: Abdomen is non- distended Bowel sounds present X 4 quads. Abd is soft Abd is non tender Reports lower abdominal pain, upper abdominal pain, nausea, vomiting. Derm: Skin is normal. 03:48 General: Appears in no apparent distress, comfortable, Behavior is appropriate for age, kmg1 cooperative. Pain: Location: head Pain currently is 10 out of 10 on a pain scale. Quality of pain is described as aching. GI: other No vomiting since arrival. 06:15 General: Appears in no apparent distress, Discharge instructions reviewed with pt sls1 including follow up care, clear liquid diet, and medication use, pt verbalizes understanding. Pain: Denies pain. Neurological: No deficits noted. Respiratory: No deficits noted. Vital Signs: 02:03 BP 155 / 88; Pulse 97; Resp 18; Temp 97.7(O); Pulse Ox 94% on R/A; Weight 80.74 kg (M); [facility] Height 71 in. (180.34 cm) (M); Pain 0/10; 06:08 BP 124 / 70; Pulse 75; Resp 18; Temp 98.6(TE); Pulse Ox 96% on R/A; Pain 0/10; nargis 02:03 Body Mass Index 24.83 (80.74 kg, 180.34 cm) [facility] Vitals: 02:03 Log In Time: April 25, 2016 at 01:42. [facility] ED Course: 01:41 Patient visited by Gilma Joyce Reg. hs2 01:41 Patient moved to Waiting hs2 02:02 Triage Initiated [facility] 02:08 Geronimo Billings RPA-C is PHCP. ck7 02:08 Giuseppe Worthington DO is Attending Physician. ck7 02:08 Patient visited by Kwaczala, Christopher, RPA-C. ck7 02:08 Patient moved to I2 / M2 km 02:45 Patient visited by Juana Wing, Deckhand. [facility] 02:45 The patient / caregiver is instructed regarding the plan of care and ED course. 1 02:45 Inserted saline lock: 20 gauge in right antecubital area and blood collected. The lf1 patient tolerated the procedure well. Labs drawn. (by ED staff). Sent per order to lab. Urine collected. Clean catch specimen. 02:50 Patient visited by Tamara Boggs RN. 1 03:01 Patient moved to 12 jl 03:49 Patient visited by Aysha Gutierrez RN. km 03:53 [facility] Payment Agreement was scanned into [employer] and attached to record. slh 05:16 Patient visited by Daly Day PCA. nargis 05:52 CT ABD & PELVIS: IV Contrast Only Returned. EDMS 06:09 Patient visited by Daly Day PCA. nargis 06:15 Discontinued lock intact, bleeding controlled, pressure dressing applied, No sls1 redness/swelling at site. No procedures done that require assistance. 14:50 T-Sheet-- Draft Copy was scanned into [employer] and attached to record. gb 04/26 12:44 Radiology Report was scanned into [employer] and attached to record. Administered Medications: 04/25 02:37 Drug: NS 0.9% 1000 ml [sodium chloride 0.9 % intravenous solution] Route: IV; Rate: slm bolus; Site: right antecubital; 06:17 Follow up: IV Status: Completed infusion [facility] 02:50 Drug: Ondansetron 4 mg [ondansetron HCl 2 mg/mL intravenous solution (2 mL)] Route: lf1 IVP; Site: right antecubital; 02:50 Drug: ketorolac 30 mg [ketorolac 30 mg/mL (1 mL) injection solution (1 mL)] Route: IVP; [facility] Site: right antecubital; Order Results: Lab Order: Amylase; SPEC'M 04/25/16 02:33 Test: AMYLASE; Value: 52; Range: 25-115; Units: U/L; Status: F Lab Order: Basic Metabolic Profile; SPEC'M 04/25/16 02:33 Test: GLUCOSE, FASTING; Value: 119; Range: 70-105; Abnormal: Above high normal; Units: MG/DL; Status: F Test: BLOOD UREA NITROGEN; Value: 9; Range: 7-18; Units: MG/DL; Status: F Test: CREATININE FOR GFR; Value: 0.87; Range: 0.70-1.30; Units: MG/DL; Status: F Test: GLOMERULAR FILTRATION RATE; Value: > 60.0; Range: >60; Status: F Test: SODIUM LEVEL; Value: 144; Range: 136-145; Units: MEQ/L; Status: F Test: POTASSIUM SERUM; Value: 4.1; Range: 3.5-5.1; Units: MEQ/L; Status: F Test: CHLORIDE LEVEL; Value: 109; Range: 98-107; Abnormal: Above high normal; Units: MEQ/L; Status: F Test: CARBON DIOXIDE LEVEL; Value: 26; Range: 21-32; Units: MEQ/L; Status: F Test: ANION GAP; Value: 9; Range: 8-16; Units: MEQ/L; Status: F Test: CALCIUM LEVEL; Value: 8.7; Range: 8.5-10.1; Units: MG/DL; Status: F Test Note: ; Units are mL/min/1.73 m2 Chronic Kidney Disease Staging per NKF: Stage I & II GFR >=60 Normal to Mildly Decreased Stage III GFR 30-59 Moderately Decreased Stage IV GFR 15-29 Severely Decreased Stage V GFR <15 Very Little GFR Left ESRD GFR <15 on ORDER PICKER/ASSEMBLER Lab Order: CBC with Diff; SPEC'M 04/25/16 02:33 Test: WHITE BLOOD COUNT; Value: 11.3; Range: 4.0-10.0; Abnormal: Above high normal; Units: K/mm3; Status: F Test: RED BLOOD COUNT; Value: 5.35; Range: 4.30-6.10; Units: M/mm3; Status: F Test: HEMOGLOBIN; Value: 16.2; Range: 14.0-18.0; Units: g/dl; Status: F Test: HEMATOCRIT; Value: 46.1; Range: 42.0-52.0; Units: %; Status: F Test: MEAN CORPUSCULAR VOLUME; Value: 86.2; Range: 80.0-96.0; Units: fl; Status: F Test: MEAN CORPUSCULAR HEMOGLOBIN; Value: 30.2; Range: 27.0-33.0; Units: pg; Status: F Test: MEAN CORPUSCULAR HGB CONC; Value: 35.0; Range: 32.0-36.5; Units: g/dl; Status: F Test: RED CELL DISTRIBUTION WIDTH; Value: 12.5; Range: 11.5-14.5; Units: %; Status: F Test: PLATELET COUNT, AUTOMATED; Value: 243; Range: 150-450; Units: k/mm3; Status: F Test: NEUTROPHILS %; Value: 80.7; Range: 36.0-66.0; Abnormal: Above high normal; Units: %; Status: F Test: LYMPH %; Value: 11.7; Range: 24.0-44.0; Abnormal: Below low normal; Units: %; Status: F Test: MONO %; Value: 4.6; Range: 0.0-5.0; Units: %; Status: F Test: EOS %; Value: 1.8; Range: 0.0-3.0; Units: %; Status: F Test: BASO %; Value: 0.3; Range: 0.0-1.0; Units: %; Status: F Test: LARGE UNSTAINED CELL %; Value: 1.0; Range: 0.0-4.0; Units: %; Status: F Test: NEUTROPHILS #; Value: 9.1; Range: 1.8-7.7; Abnormal: Above high normal; Units: K/mm3; Status: F Test: LYMPH #; Value: 1.3; Range: 1.5-4.5; Abnormal: Below low normal; Units: K/mm3; Status: F Test: MONO #; Value: 0.5; Range: 0.0-0.8; Units: K/mm3; Status: F Test: EOS #; Value: 0.2; Range: 0.0-0.50; Units: K/mm3; Status: F Test: BASO #; Value: 0.0; Range: 0.0-0.2; Units: K/mm3; Status: F Test: LARGE UNSTAINED CELL #; Value: 0.1; Range: 0.0-0.4; Units: K/mm3; Status: F Lab Order: Lipase; [facility] 04/25/16 02:33 Test: LIPASE; Value: 130; Range: 73-393; Units: U/L; Status: F Lab Order: Liver Profile; [facility] 04/25/16 02:33 Test: AST/SGOT; Value: 16; Range: 15-37; Units: U/L; Status: F Test: ALT/SGPT; Value: 54; Range: 12-78; Units: U/L; Status: F Test: ALKALINE PHOSPHATASE; Value: 80; Range: 45-117; Units: U/L; Status: F Test: BILIRUBIN,TOTAL; Value: 0.3; Range: 0.2-1.0; Units: MG/DL; Status: F Test: BILIRUBIN,DIRECT; Value: 0.1; Range: 0.0-0.2; Units: MG/DL; Status: F Test: TOTAL PROTEIN; Value: 6.9; Range: 6.4-8.2; Units: GM/DL; Status: F Test: ALBUMIN; Value: 4.1; Range: 3.2-5.2; Units: GM/DL; Status: F Test: ALBUMIN/GLOBULIN RATIO; Value: 1.46; Range: 1.00-1.93; Status: F Lab Order: Urinalysis; [facility] 04/25/16 02:29 Test: APPEARANCE, URINE; Value: HAZY; Range: CLEAR; Status: F Test: COLOR, URINE; Value: YELLOW; Range: YELLOW; Status: F Test: PH,URINE; Value: 5.0; Range: 5.0-9.0; Units: UNITS; Status: F Test: SPECIFIC GRAVITY URINE AUTO; Value: 1.024; Range: 1.002-1.035; Status: F Test: PROTEIN, URINE AUTO; Value: NEGATIVE; Range: NEGATIVE; Units: mg/dL; Status: F Test: GLUCOSE, URINE (UA) AUTO; Value: NEGATIVE; Range: NEGATIVE; Units: mg/dL; Status: F Test: KETONE, URINE AUTO; Value: NEGATIVE; Range: NEGATIVE; Units: mg/dL; Status: F Test: UROBILINOGEN, URINE AUTO; Value: 0.2; Range: 0.0-2.0; Units: mg/dL; Status: F Test: BILIRUBIN, URINE AUTO; Value: NEGATIVE; Range: NEGATIVE; Status: F Test: NITRITE, URINE AUTO; Value: NEGATIVE; Range: NEGATIVE; Status: F Test: LEUKOCYTE ESTERASE, URINE AUTO; Value: NEGATIVE; Range: NEGATIVE; Status: F Test: BLOOD, URINE BLOOD; Value: NEGATIVE; Range: NEGATIVE; Status: F Test: WBC, URINE AUTO; Value: 3; Range: 0-3; Units: /HPF; Status: F Test: RBC, URINE AUTO; Value: 4; Range: 0-3; Abnormal: Above high normal; Units: /HPF; Status: F Test: BACTERIA, URINE AUTO; Value: NEGATIVE; Range: NEGATIVE; Status: F Test: SQUAMOUS EPITHELIAL CELL UR AU; Value: 0; Range: 0-6; Units: /HPF; Status: F Test: MUCUS, URINE; Value: MODERATE; Range: NEGATIVE; Status: F Test: HYALINE CAST, URINE AUTO; Value: 0; Range: 0-1; Units: /LPF; Status: F Lab Order: Urine Culture; SPEC'M 04/25/16 02:29 Test: URINE CULTURE; Value: URINE CULTURE RESULT NO GROWTH; Status: F Radiology Order: CT ABD & PELVIS: IV Contrast Only Test: CT ABD & PELVIS: IV Contrast Only REASON FOR EXAMINATION: Appendicitis; ; CLINICAL HISTORY: Abdominal pain.; TECHNIQUE: Multiple axial, sagittal and coronal CT images were obtained through the abdomen and pelvi; s after administration of intravenous contrast material.; COMMENTS:; The liver is of decreased attenuation without mass or defect. There is no intra or extrahepatic bilia; ry ductal dilatation. The spleen is normal. The gallbladder is within normal limits. The pancreas is; of normal contour and attenuation characteristics. There is no evidence of adrenal mass.; Both kidneys demonstrate prompt and equal nephrograms. The kidneys are normal in size, shape and conf; iguration. There is no evidence of renal or ureteral mass. No renal or ureteral calculi are identifie; d. There is no hydroureter or hydronephrosis.; No evidence for appendicitis. There is no bowel wall thickening. No evidence for small or large kari; l obstruction. There is no evidence of abdominal ascites or lymphadenopathy.; There is no evidence of intrinsic or extrinsic bladder mass. There is no pelvic ascites or lymphadeno; you. Mildly distended bladder. Mild prostatomegaly.; Images of the lung bases show no evidence of pleural or parenchymal mass. There are no pleural effusi; ons.; The bony structures are free of lytic or blastic lesions. Multilevel degenerative changes are seen in; volving the thoracolumbar spine. Scattered calcifications are seen involving the aorta and major bran; ches compatible with atherosclerosis.; IMPRESSION:; Fatty liver infiltration.; Mildly distended bladder.; Mesenteric panniculitis.; Thank you for your kind referral of this patient.; ; Outcome: 06:04 Discharge ordered by Provider. 11 06:15 Discharge Assessment: Patient awake, alert and oriented x 3. No cognitive and/or sls1 functional deficits noted. Patient verbalized understanding of disposition instructions. patient administered narcotics - no. The following High Risk Discharge criteria are identified: None. Discharged to home ambulatory. Condition: stable. Discharge instructions given to patient, Instructed on discharge instructions, follow up and referral plans. medication usage, diet, Demonstrated understanding of instructions, medications, Pt was receptive of discharge instructions/ teaching. Prescriptions given X 1. CT Study completed. 06:18 Patient left the ED. [facility] Signatures: Dispatcher [employer] EDMS Aysha Gutierrez, RN RN kmg1 Maria Luisa Wang, Reg Reg gb Tamara BoggsRN RN lf1 Daly Day, GEOPHYSICAL LABORATORY SUPERVISOR GEOPHYSICAL LABORATORY SUPERVISOR Nataliia Gibbs RN RN sls1 Geronimo Billings, RPA-C RPA-Cck7 Giuseppe Worthington, DO cs11 Mary Dailey,BELLHOP CAPTAIN BELLHOP CAPTAIN slJuana Graff, Deckhand Unit Wanda Perez Gilma Gray, Reg Reg hs2 Corrections: (The following items were deleted from the chart) 03:58 03:48 Pain: Pain currently is 2 out of 10 on a pain scale. [place] [id number] Chart Complete MTDD
--- NOTE | 2016-04-27 07:18 | EDDOCDS ---
Physician Documentation [facility] Name: Salomon Pike Age: 41 yrs Sex: Male : 1975 Arrival Date: 04/25/2016 Time: 01:40 Bed 12 Private MD: Disposition: 04/25/16 06:04 Discharged to Home/Self Care. Impression: Noninfective gastroenteritis and colitis, unspecified. - Condition is Stable. - Discharge Instructions: Clear Liquid Diet. - Prescriptions for Zofran 4 mg Oral Tablet - take 1 tablet by ORAL route 4 times per day As needed; 10 tablet. - Medication Reconciliation, Local Pharmacy Hours form. - Follow up: Private Physician; When: Call to arrange an appointment; Reason: Recheck today's complaints. - Problem is new. - Symptoms have improved. Historical: - Allergies: No known drug Allergies; - Home Meds: 1. Proventil HFA 90 mcg/actuation inhalation HFAA 2 puffs every 6 hours as needed 2. Vitamin D 2000u Oral 2000 unit daily - PMHx: Asthma; - PSHx: Appendectomy; ORIF Right Ankle; Fx left great toe; - Social history: Smoking status: Patient states was never smoker of tobacco. No barriers to communication noted, The patient speaks fluent Wolof, Speaks appropriately for age. - Family history: Not pertinent, No immediate family members are acutely ill. - : The pt / caregiver states he / she is not on anticoagulants. Home medication list is obtained from the patient. - Exposure Risk Screening:: None identified. Vital Signs: 04/25 02:03 BP 155 / 88; Pulse 97; Resp 18; Temp 97.7(O); Pulse Ox 94% on R/A; Weight 80.74 kg / kmg1 178 lbs (M); Height 71 in. (180.34 cm) (M); Pain 0/10; 06:08 BP 124 / 70; Pulse 75; Resp 18; Temp 98.6(TE); Pulse Ox 96% on R/A; Pain 0/10; nargis 02:03 Body Mass Index 24.83 (80.74 kg, 180.34 cm) kmg1 MDM: 02:15 Undress patient appropriately for examination ordered. ck7 02:15 IV Saline Lock ordered. ck7 02:15 NS 0.9% 1000 ml IV at bolus once ordered. ck7 02:15 Ondansetron 4 mg IVP once ordered. ck7 02:15 ketorolac 30 mg IVP once ordered. ck7 02:16 Amylase Ordered. EDMS 02:16 Basic Metabolic Profile Ordered. EDMS 02:16 CBC with Diff Ordered. EDMS 02:16 Lipase Ordered. EDMS 02:16 Liver Profile Ordered. EDMS 02:16 Urinalysis Ordered. EDMS 02:16 Urine Culture Ordered. EDMS 02:16 NOTHING BY MOUTH+DIET ordered. EDMS 03:05 CBC with Diff Reviewed. ck7 03:18 Financial registration complete. [facility] 03:53 [facility] Payment Agreement was scanned into [employer] and attached to record. [facility] 03:56 Basic Metabolic Profile Reviewed. 11 03:56 Urinalysis Reviewed. cs11 03:56 Amylase Reviewed. cs11 03:56 Lipase Reviewed. cs11 03:56 Liver Profile Reviewed. cs11 04:03 CT ABD & PELVIS: IV Contrast Only Ordered. EDMS 14:50 T-Sheet-- Draft Copy was scanned into [employer] and attached to record. 04/26 12:44 Radiology Report was scanned into [employer] and attached to record. Administered Medications: 04/25 02:37 Drug: NS 0.9% 1000 ml [sodium chloride 0.9 % intravenous solution] Route: IV; Rate: slm bolus; Site: right antecubital; 06:17 Follow up: IV Status: Completed infusion [facility] 02:50 Drug: Ondansetron 4 mg [ondansetron HCl 2 mg/mL intravenous solution (2 mL)] Route: lf1 IVP; Site: right antecubital; 02:50 Drug: ketorolac 30 mg [ketorolac 30 mg/mL (1 mL) injection solution (1 mL)] Route: IVP; lf1 Site: right antecubital; Signatures: Dispatcher [employer] EDMS Aysha Gutierrez, RN RN kmg1 Maria Luisa Wang, Nataliia Wiggins RN RN sls1 Geronimo Billings, RPA-C RPA-Cck7 Giuseppe Worthington DO DO cs11 Wanda Avila [facility] Tamara Boggs RN [facility] Mary Dailey LPN [facility] The chart was reviewed and I authenticate all verbal orders and agree with the evaluation and treatment provided.Attachments: 03:53 [facility] Payment Agreement [facility] 14:50 T-Sheet-- Draft Copy gb Chart Complete MTDD
--- NOTE | 2016-04-27 07:18 | EDDOCDS ---
Physician Documentation [facility] Name: Salomon Pike Age: 41 yrs Sex: Male : 1975 Arrival Date: 04/25/2016 Time: 01:40 Bed 12 Private MD: Disposition: 04/25/16 06:04 Discharged to Home/Self Care. Impression: Noninfective gastroenteritis and colitis, unspecified. - Condition is Stable. - Discharge Instructions: Clear Liquid Diet. - Prescriptions for Zofran 4 mg Oral Tablet - take 1 tablet by ORAL route 4 times per day As needed; 10 tablet. - Medication Reconciliation, Local Pharmacy Hours form. - Follow up: Private Physician; When: Call to arrange an appointment; Reason: Recheck today's complaints. - Problem is new. - Symptoms have improved. Historical: - Allergies: No known drug Allergies; - Home Meds: 1. Proventil HFA 90 mcg/actuation inhalation HFAA 2 puffs every 6 hours as needed 2. Vitamin D 2000u Oral 2000 unit daily - PMHx: Asthma; - PSHx: Appendectomy; ORIF Right Ankle; Fx left great toe; - Social history: Smoking status: Patient states was never smoker of tobacco. No barriers to communication noted, The patient speaks fluent Macedonian, Speaks appropriately for age. - Family history: Not pertinent, No immediate family members are acutely ill. - : The pt / caregiver states he / she is not on anticoagulants. Home medication list is obtained from the patient. - Exposure Risk Screening:: None identified. Vital Signs: 04/25 02:03 BP 155 / 88; Pulse 97; Resp 18; Temp 97.7(O); Pulse Ox 94% on R/A; Weight 80.74 kg / kmg1 178 lbs (M); Height 71 in. (180.34 cm) (M); Pain 0/10; 06:08 BP 124 / 70; Pulse 75; Resp 18; Temp 98.6(TE); Pulse Ox 96% on R/A; Pain 0/10; nargis 02:03 Body Mass Index 24.83 (80.74 kg, 180.34 cm) kmg1 MDM: 02:15 Undress patient appropriately for examination ordered. ck7 02:15 IV Saline Lock ordered. ck7 02:15 NS 0.9% 1000 ml IV at bolus once ordered. ck7 02:15 Ondansetron 4 mg IVP once ordered. ck7 02:15 ketorolac 30 mg IVP once ordered. ck7 02:16 Amylase Ordered. EDMS 02:16 Basic Metabolic Profile Ordered. EDMS 02:16 CBC with Diff Ordered. EDMS 02:16 Lipase Ordered. EDMS 02:16 Liver Profile Ordered. EDMS 02:16 Urinalysis Ordered. EDMS 02:16 Urine Culture Ordered. EDMS 02:16 NOTHING BY MOUTH+DIET ordered. EDMS 03:05 CBC with Diff Reviewed. ck7 03:18 Financial registration complete. [facility] 03:53 [facility] Payment Agreement was scanned into [employer] and attached to record. [facility] 03:56 Basic Metabolic Profile Reviewed. 11 03:56 Urinalysis Reviewed. cs11 03:56 Amylase Reviewed. cs11 03:56 Lipase Reviewed. cs11 03:56 Liver Profile Reviewed. cs11 04:03 CT ABD & PELVIS: IV Contrast Only Ordered. EDMS 14:50 T-Sheet-- Draft Copy was scanned into [employer] and attached to record. 04/26 12:44 Radiology Report was scanned into [employer] and attached to record. Administered Medications: 04/25 02:37 Drug: NS 0.9% 1000 ml [sodium chloride 0.9 % intravenous solution] Route: IV; Rate: slm bolus; Site: right antecubital; 06:17 Follow up: IV Status: Completed infusion [facility] 02:50 Drug: Ondansetron 4 mg [ondansetron HCl 2 mg/mL intravenous solution (2 mL)] Route: lf1 IVP; Site: right antecubital; 02:50 Drug: ketorolac 30 mg [ketorolac 30 mg/mL (1 mL) injection solution (1 mL)] Route: IVP; lf1 Site: right antecubital; Signatures: Dispatcher [employer] EDMS Aysha Gutierrez, RN RN kmg1 Maria Luisa Wang, Nataliia Wiggins RN RN sls1 Geronimo Billings, RPA-C RPA-Cck7 Giuseppe Worthington DO DO cs11 Wanda Avila [facility] Tamara Boggs RN [facility] Mary Dailey LPN [facility] The chart was reviewed and I authenticate all verbal orders and agree with the evaluation and treatment provided.Attachments: 03:53 [facility] Payment Agreement [facility] 14:50 T-Sheet-- Draft Copy gb Chart Complete MTDD
== END 2016-04-25 06:18 | disposition home or self-care (01) ==
LOC: M ED 01:40
DX: K52.9 Noninfective gastroenteritis and colitis, unspecified (principal); J45.909 Unspecified asthma, uncomplicated
CPT/HCPCS: 36415; 74177; 80048; 80076; 81001; 82150; 83690; 85025; 87086; 96361; 96374; 96375; 99284; J1885; J2405; Q9967

== ENCOUNTER → 2016-05-16 | Outpatient (REF) | payer MEDICARE, MEDICAID ==
[2016-05-16 12:31] LABS: ALBUMIN 4.3 GM/DL (3.2-5.2); ALBUMIN/GLOBULIN RATIO 1.65 (1.00-1.93); ALKALINE PHOSPHATASE 80 U/L (45-117); ALT/SGPT 34 U/L (12-78); ANION GAP 10 MEQ/L (8-16); AST/SGOT 11 U/L (15-37); BILIRUBIN,TOTAL 0.4 MG/DL (0.2-1.0); BLOOD UREA NITROGEN 8 MG/DL (7-18); CALCIUM LEVEL 8.9 MG/DL (8.5-10.1); CARBON DIOXIDE LEVEL 27 MEQ/L (21-32); CHLORIDE LEVEL 107 MEQ/L (98-107); CHOLESTEROL LEVEL 173 MG/DL (<200); CREATININE FOR GFR 0.77 MG/DL (0.70-1.30); GLOMERULAR FILTRATION RATE > 60.0 (>60); GLUCOSE, FASTING 82 MG/DL (70-105); POTASSIUM SERUM 3.9 MEQ/L (3.5-5.1); SODIUM LEVEL 144 MEQ/L (136-145); TOTAL PROTEIN 6.9 GM/DL (6.4-8.2); TRIGLYCERIDES LEVEL 223 MG/DL (<150)
[2016-05-16 12:37] LABS: BASO % 0.3 % (0.0-1.0); EOS # 0.2 K/mm3 (0.0-0.50); LARGE UNSTAINED CELL # 0.1 K/mm3 (0.0-0.4); LARGE UNSTAINED CELL % 1.5 % (0.0-4.0); LYMPH # 1.7 K/mm3 (1.5-4.5); LYMPH % 19.5 % (24.0-44.0); MEAN CORPUSCULAR HGB CONC 33.9 g/dl (32.0-36.5); MEAN CORPUSCULAR VOLUME 88.4 fl (80.0-96.0); MONO # 0.6 K/mm3 (0.0-0.8); MONO % 7.4 % (0.0-5.0); NEUTROPHILS # 5.6 K/mm3 (1.8-7.7); NEUTROPHILS % 69.3 % (36.0-66.0); PLATELET COUNT, AUTOMATED 226 k/mm3 (150-450); RED CELL DISTRIBUTION WIDTH 12.9 % (11.5-14.5)
== END ==
LOC: M SFHCPLAZ 09:14
PROVIDERS: ATTEND Nurse Practitioner Family
DX: Z00.00 Encounter for general adult medical examination without abnormal findings (principal); Z13.220 Encounter for screening for lipoid disorders; E55.9 Vitamin D deficiency, unspecified

== ENCOUNTER → 2016-12-01 | Outpatient (REF) | payer MEDICARE, MEDICAID | LOC: M SFHCPLAZ 11:00 | PROVIDERS: ATTEND Family Medicine | DX: Z83.3 Family history of diabetes mellitus (principal) ==

== ENCOUNTER 2017-08-25 06:52 | Emergency (ER) | payer MEDICARE, MEDICAID ==
[2017-08-25] MEDS: KETOROLAC 30 MG/ML VIAL (J1885) IV (07:56)
[2017-08-25 08:10] LABS: BASO % 0.3 % (0.0-1.0); EOS # 0.1 10^3/uL (0.0-0.50); EOS % 0.5 % (0.0-3.0); IMMATURE GRANULOCYTE % 0.6 % (0-3.0); LYMPH # 1.3 10^3/uL (1.5-4.5); LYMPH % 12.4 % (24.0-44.0); MEAN CORPUSCULAR HGB CONC 34.8 g/dl (32.0-36.5); MEAN CORPUSCULAR VOLUME 86.3 fl (80.0-96.0); MONO # 0.7 10^3/uL (0.0-0.8); MONO % 6.5 % (0.0-5.0); NEUTROPHILS # 8.6 10^3/uL (1.8-7.7); NEUTROPHILS % 79.7 % (36.0-66.0); PLATELET COUNT, AUTOMATED 265 10^3/uL (150-450); RED BLOOD COUNT 5.33 10^6/uL (4.30-6.10); RED CELL DISTRIBUTION WIDTH 12.6 % (11.5-14.5); WHITE BLOOD COUNT 10.8 10^3/uL (4.0-10.0)
[2017-08-25 08:33] LABS: ALBUMIN 4.2 GM/DL (3.2-5.2); ALKALINE PHOSPHATASE 94 U/L (45-117); ALT/SGPT 52 U/L (12-78); ANION GAP 8 MEQ/L (8-16); AST/SGOT 25 U/L (7-37); BILIRUBIN,DIRECT 0.1 MG/DL (0.0-0.2); BILIRUBIN,TOTAL 0.6 MG/DL (0.2-1.0); BLOOD UREA NITROGEN 9 MG/DL (7-18); CALCIUM LEVEL 8.9 MG/DL (8.5-10.1); CARBON DIOXIDE LEVEL 26 MEQ/L (21-32); CHLORIDE LEVEL 106 MEQ/L (98-107); CPK CREATINE PHOSPHOKINASE 214 U/L (39-308); GLOMERULAR FILTRATION RATE > 60.0 (>60); GLUCOSE, FASTING 99 MG/DL (70-100); POTASSIUM SERUM 4.1 MEQ/L (3.5-5.1); SODIUM LEVEL 140 MEQ/L (136-145); TOTAL PROTEIN 7.7 GM/DL (6.4-8.2); TROPONIN I < 0.02 NG/ML (< 0.10)
[2017-08-25 08:39] LABS: MB/CK RELATIVE INDEX 0.93 (< OR =4); NT-PRO BNP 19 PG/ML (<125)
[2017-08-25 09:42] LABS: D-DIMER QUANT < 270.0 ng/ml (<500)
[2017-08-25] MEDS: GI COCKTAIL 50ML BTL(HYOSCYAMINE/MAALOX/LIDOCAINE VISCOUS)(1:3:1) PO (10:40)
[2017-08-25] MEDS: PERCOCET 5MG/325MG TAB PO (10:40)
[2017-08-25 13:45] LABS: CPK CREATINE PHOSPHOKINASE 206 U/L (39-308); MB/CK RELATIVE INDEX 0.97 (< OR =4); TROPONIN I < 0.02 NG/ML (< 0.10)
== END 2017-08-25 14:11 | disposition home or self-care (01) ==
LOC: M ED 06:52
DX: R07.9 Chest pain, unspecified (principal); Z79.899 Other long term (current) drug therapy
CPT/HCPCS: J1885

== ENCOUNTER 2017-11-18 12:51 | Emergency (ER) | payer MEDICARE, MEDICAID | END 2017-11-18 14:19 | disposition home or self-care (01) | LOC: M ED 12:51 | DX: S83.421A Sprain of lateral collateral ligament of right knee, initial encounter (principal); X50.9XXA Other and unspecified overexertion or strenuous movements or postures, initial encounter; Y92.018 Other place in single-family (private) house as the place of occurrence of the external cause; Z79.899 Other long term (current) drug therapy | CPT/HCPCS: 73564 ==

== ENCOUNTER 2019-03-26 10:49 | Emergency (ER) | payer MEDICARE, MEDICAID ==
[~2019-03-26] VITALS: Ht 167.6 cm; Wt 86.8 kg
[~2019-03-26 10:49] MED LIST: ADVA230A; FLUTISP; LISI-542; MONT10TA2; NAPR-837 PO; PEPC1TAB5 PO; PROAAER10; SUCR1SS PO; [UNRECOGNIZED DRUG - CODE]
--- NOTE | 2019-03-26 11:44 | REP ---
CT brain: 03/26/2019. Indication: Trauma. Comparison: None. Technique: Unenhanced axial CT images of the brain were obtained from skull base to vertex. Findings: There is no acute intracranial hemorrhage, acute cortical infarction, mass effect, hydrocephalus or acute calvarial fracture. Cavum septum pellucidum is noted. The paranasal sinuses and mastoid air cells are clear. Impression: No acute intracranial process. Electronically Signed by Eugene Serrato DO 03/26/2019 11:35 A
--- NOTE | 2019-03-26 11:58 | REP ---
CT cervical spine: 03/26/2019. Indication: Cervical spine trauma. Comparison: None. Technique: Unenhanced axial CT images of the cervical spine were obtained with coronal and sagittal reconstructions provided. Findings: There is no acute fracture, subluxation or dislocation. No spinal canal hemorrhage or additional acute post traumatic spinal canal abnormalities are present. There is no severe narrowing of the spinal canal detected. Impression: No acute osseous cervical spine injuries. Electronically Signed by Eugene Serrato DO 03/26/2019 11:49 A
--- NOTE | 2019-03-26 12:39 | REP ---
LEFT SHOULDER, THREE VIEWS: There is no evidence of an acute fracture, dislocation or intrinsic bone disease. IMPRESSION: No fracture or dislocation. Electronically Signed by Denny Garcia MD 03/26/2019 04:22 P
[2019-03-26 13:16] VITALS: BP 129/61
== END 2019-03-26 13:22 | disposition home or self-care (01) ==
LOC: EDBD 10:49 → M ED 10:49
DX: S16.1XXA Strain of muscle, fascia and tendon at neck level, initial encounter (principal); S40.012A Contusion of left shoulder, initial encounter; W00.0XXA Fall on same level due to ice and snow, initial encounter; Y92.410 Unspecified street and highway as the place of occurrence of the external cause; Z79.1 Long term (current) use of non-steroidal anti-inflammatories (NSAID); Z79.51 Long term (current) use of inhaled steroids; Z79.899 Other long term (current) drug therapy

== ENCOUNTER → 2019-03-27 | Outpatient (CLI) | payer MEDICARE, MEDICAID ==
[2019-03-27 09:29] LABS: ALBUMIN 4.1 GM/DL (3.2-5.2); ALT/SGPT 54 U/L (12-78); BILIRUBIN,TOTAL 0.4 MG/DL (0.2-1.0); BLOOD UREA NITROGEN 8 MG/DL (7-18); CARBON DIOXIDE LEVEL 25 MEQ/L (21-32); CHLORIDE LEVEL 107 MEQ/L (98-107); CHOLESTEROL LEVEL 200 MG/DL (<200); CREATININE FOR GFR 0.99 MG/DL (0.70-1.30); GLOMERULAR FILTRATION RATE > 60.0 (>60); GLUCOSE, FASTING 93 MG/DL (70-100); HDL CHOLESTEROL 40 MG/DL (>40); LDL CHOLESTEROL 92 MG/DL (<100); NON-HDL-C 160 MG/DL; SODIUM LEVEL 140 MEQ/L (136-145); TOTAL PROTEIN 6.9 GM/DL (6.4-8.2); TRIGLYCERIDES LEVEL 341 MG/DL (<150)
[2019-03-27 10:07] LABS: HEMOGLOBIN A1c 5.4 %
--- NOTE | 2019-03-27 12:27 | REP ---
LEFT SHOULDER, THREE VIEWS: Three views of the left shoulder performed. COMPARISON: 03/26/2019. There is no acute fracture or dislocation. There is mild narrowing of the acromioclavicular joint. IMPRESSION: No acute fracture or dislocation. Electronically Signed by Denny Garcia MD 03/27/2019 07:58 P
[2019-03-27 13:14] LABS: TOTAL 25(OH) VITAMIN D 21.8 NG/ML (30.0-100.0)
== END ==
LOC: M LAB 08:07
PROVIDERS: ATTEND Physician Assistant
DX: I11.9 Hypertensive heart disease without heart failure (principal); E55.9 Vitamin D deficiency, unspecified; Z13.220 Encounter for screening for lipoid disorders; Z13.1 Encounter for screening for diabetes mellitus; M25.512 Pain in left shoulder

== ENCOUNTER → 2020-03-03 | Outpatient (REF) | payer MEDICARE, MEDICAID ==
[~2020-03-03] MED LIST changes: -MONT10TA2; +MONT10TA4
[2020-03-03 10:45] LABS: BASO % 0.5 % (0.0-1.0); EOS # 0.2 10^3/uL (0.0-0.5); EOS % 2.8 % (0.0-3.0); HEMATOCRIT 46.1 % (42.0-52.0); HEMOGLOBIN 15.5 g/dl (13.5-17.5); LYMPH # 2.2 10^3/uL (1.5-5.0); LYMPH % 28.1 % (24.0-44.0); MEAN CORPUSCULAR HEMOGLOBIN 29.6 pg (27.0-33.0); MEAN CORPUSCULAR HGB CONC 33.6 g/dl (32.0-36.5); MONO # 0.6 10^3/uL (0.0-0.8); MONO % 8.1 % (0.0-5.0); NEUTROPHILS # 4.7 10^3/uL (1.5-8.5); NEUTROPHILS % 59.4 % (36.0-66.0); PLATELET COUNT, AUTOMATED 253 10^3/uL (150-450); RED BLOOD COUNT 5.24 10^6/uL (4.30-6.10); WHITE BLOOD COUNT 7.9 10^3/uL (4.0-10.0)
[2020-03-03 11:24] LABS: ALT/SGPT 113 U/L (12-78); BILIRUBIN,TOTAL 0.5 MG/DL (0.2-1.0); BLOOD UREA NITROGEN 11 MG/DL (7-18); CALCIUM LEVEL 9.7 MG/DL (8.5-10.1); CARBON DIOXIDE LEVEL 28 MEQ/L (21-32); CHLORIDE LEVEL 104 MEQ/L (98-107); CREATININE FOR GFR 0.97 MG/DL (0.70-1.30); GLOMERULAR FILTRATION RATE > 60.0 (>60); GLUCOSE, FASTING 96 MG/DL (70-100); SODIUM LEVEL 139 MEQ/L (136-145)
[2020-03-03 11:25] LABS: ALBUMIN 4.2 GM/DL (3.2-5.2); CHOLESTEROL LEVEL 225 MG/DL (<200); CHOLESTEROL RISK RATIO 4.787 (<5); HDL CHOLESTEROL 47 MG/DL (>40); NON-HDL-C 178 MG/DL; TOTAL PROTEIN 7.4 GM/DL (6.4-8.2); TRIGLYCERIDES LEVEL 511 MG/DL (<150)
[2020-03-03 11:27] LABS: TOTAL 25(OH) VITAMIN D 22.4 NG/ML (30.0-100.0)
== END ==
LOC: M PLALAB 08:14
PROVIDERS: ATTEND Physician Assistant
DX: K21.9 Gastro-esophageal reflux disease without esophagitis (principal); I11.9 Hypertensive heart disease without heart failure; Z13.220 Encounter for screening for lipoid disorders; E55.9 Vitamin D deficiency, unspecified; Z79.899 Other long term (current) drug therapy

== ENCOUNTER → 2021-03-10 | Outpatient (CLI) | payer MEDICARE, MEDICAID ==
[~2021-03-10] MED LIST changes: -LISI-542; +LISI5TAB11; -MONT10TA4; +MONT10TA97
== END ==
LOC: M WUC 11:56
PROVIDERS: ATTEND Nurse Practitioner Family
DX: M79.601 Pain in right arm (principal); W01.198A Fall on same level from slipping, tripping and stumbling with subsequent striking against other object, initial encounter; Y92.9 Unspecified place or not applicable; Y93.9 Activity, unspecified; Y99.9 Unspecified external cause status

== ENCOUNTER 2021-06-25 16:49 | Emergency (ER) | payer MEDICARE, MEDICAID ==
[2021-06-25] MEDS ORDERED: dexameTHASONE 20MG/5ML VIAL (J1100 PER 1MG) IV ONE (17:20)
[2021-06-25] MEDS: COMBIVENT RESPIMAT 100-20MCG INHALER 4GM INH SCH ×2 (17:23→17:33)
[2021-06-25 17:47] LABS: VENOUS BASE EXCESS 0.7 (-2.0-2.0); VENOUS HCO3 22.7 MEQ/L (23.0-27.0); VENOUS PARTIAL PRESSURE CO2 29.6 mmHg (38.0-50.0); VENOUS PARTIAL PRESSURE O2 66.1 mmHg (30.0-50.0); VENOUS PH 7.503 UNITS (7.330-7.430); VENOUS TOTAL CO2 23.6 MEQ/L (24.0-28.0)
[2021-06-25 17:57] LABS: BASO % 0.3 % (0.0-1.0); EOS # 0.1 10^3/uL (0.0-0.5); EOS % 0.4 % (0.0-3.0); HEMATOCRIT 39.7 % (42.0-52.0); HEMOGLOBIN 14.1 g/dl (13.5-17.5); LYMPH # 2.2 10^3/uL (1.5-5.0); LYMPH % 15.1 % (24.0-44.0); MEAN CORPUSCULAR HEMOGLOBIN 30.1 pg (27.0-33.0); MEAN CORPUSCULAR HGB CONC 35.5 g/dl (32.0-36.5); MEAN CORPUSCULAR VOLUME 84.8 fl (80.0-96.0); MONO # 1.2 10^3/uL (0.0-0.8); MONO % 7.9 % (2.0-8.0); NEUTROPHILS # 11.1 10^3/uL (1.5-8.5); NEUTROPHILS % 75.6 % (36.0-66.0); PLATELET COUNT, AUTOMATED 315 10^3/uL (150-450); RED BLOOD COUNT 4.68 10^6/uL (4.30-6.10); WHITE BLOOD COUNT 14.6 10^3/uL (4.0-10.0)
[2021-06-25 18:19] LABS: CK-MB VALUE MASS < 1.0 NG/ML (<3.6); CPK CREATINE PHOSPHOKINASE 122 U/L (39-308); MB/CK RELATIVE INDEX 0.82 (< OR =4)
[2021-06-25 18:24] LABS: ALBUMIN 4.3 GM/DL (3.2-5.2); ALT/SGPT 64 U/L (12-78); BILIRUBIN,DIRECT 0.2 MG/DL (0.0-0.2); BILIRUBIN,TOTAL 0.5 MG/DL (0.2-1.0); BLOOD UREA NITROGEN 18 MG/DL (7-18); CALCIUM LEVEL 9.7 MG/DL (8.5-10.1); CARBON DIOXIDE LEVEL 25 MEQ/L (21-32); CHLORIDE LEVEL 106 MEQ/L (98-107); CREATININE FOR GFR 1.21 MG/DL (0.70-1.30); GLOMERULAR FILTRATION RATE > 60.0 (>60); GLUCOSE, FASTING 107 MG/DL (70-100); NT-PRO BNP 11 PG/ML (<125); POTASSIUM SERUM 3.6 MEQ/L (3.5-5.1); SODIUM LEVEL 140 MEQ/L (136-145); THYROXINE (T4) 11.2 UG/DL (4.5-12.0); TOTAL PROTEIN 7.1 GM/DL (6.4-8.2)
[2021-06-25 18:48] LABS: MAGNESIUM LEVEL 2.1 MG/DL (1.8-2.4)
[2021-06-25] MEDS ORDERED: NS 1,000 ML IV ONE (19:05)
[2021-06-25] MEDS ORDERED: ISOVUE-370 76% 100ML VIAL As Ordered ONE (19:14)
[2021-06-25] MEDS ORDERED: AZITHROMYCIN 250MG TABLET PO ONE (20:05)
[2021-06-25] MEDS ORDERED: CEFUROXIME 500 MG TAB PO ONE (20:05)
[2021-06-25] MEDS ORDERED: CEFU50TA PO (20:14)
[2021-06-25] MEDS ORDERED: AZIT500T5 PO (20:14)
[2021-06-25] MEDS ORDERED: GI COCKTAIL 50ML BTL(HYOSCYAMINE/MAALOX/LIDOCAINE VISCOUS)(1:3:1) PO ONE (20:35)
[2021-06-25 21:31] VITALS: BP 144/70
== END 2021-06-25 21:35 | disposition home or self-care (01) ==
LOC: M ED 16:49
DX: R06.00 Dyspnea, unspecified (principal); J18.9 Pneumonia, unspecified organism; R94.31 Abnormal electrocardiogram [ECG] [EKG]; I10 Essential (primary) hypertension; J45.909 Unspecified asthma, uncomplicated; Z79.51 Long term (current) use of inhaled steroids; Z79.811 Long term (current) use of aromatase inhibitors
CPT/HCPCS: 71045; 71275; 80048; 80076; 82550; 82553; 82803; 83605; 83735; 83880; 84436; 84443; 84484; 85025; 87040; 87798; 93005; 93041; 96374; 99285; J1100; Q9967

== ENCOUNTER → 2021-08-23 | Outpatient (CLI) | payer MEDICARE, MEDICAID ==
[~2021-08-23] MED LIST changes: +AZIT500T5 PO; +CEFU50TA PO
[2021-08-23 14:01] LABS: BASO % 0.3 % (0.0-1.0); EOS # 0.1 10^3/uL (0.0-0.5); EOS % 1.1 % (0.0-3.0); HEMATOCRIT 41.9 % (42.0-52.0); HEMOGLOBIN 14.6 g/dl (13.5-17.5); LYMPH # 2.2 10^3/uL (1.5-5.0); LYMPH % 22.5 % (24.0-44.0); MEAN CORPUSCULAR HEMOGLOBIN 31.2 pg (27.0-33.0); MEAN CORPUSCULAR HGB CONC 34.8 g/dl (32.0-36.5); MEAN CORPUSCULAR VOLUME 89.5 fl (80.0-96.0); MONO % 10.1 % (2.0-8.0); NEUTROPHILS # 6.5 10^3/uL (1.5-8.5); NEUTROPHILS % 65.5 % (36.0-66.0); PLATELET COUNT, AUTOMATED 311 10^3/uL (150-450); RED BLOOD COUNT 4.68 10^6/uL (4.30-6.10); WHITE BLOOD COUNT 9.9 10^3/uL (4.0-10.0)
[2021-08-23 14:42] LABS: ALBUMIN 4.5 GM/DL (3.2-5.2); ALT/SGPT 53 U/L (12-78); BILIRUBIN,TOTAL 0.7 MG/DL (0.2-1.0); BLOOD UREA NITROGEN 16 MG/DL (7-18); CALCIUM LEVEL 9.2 MG/DL (8.5-10.1); CARBON DIOXIDE LEVEL 27 MEQ/L (21-32); CHLORIDE LEVEL 104 MEQ/L (98-107); CHOLESTEROL LEVEL 158 MG/DL (<200); CHOLESTEROL RISK RATIO 3.761 (<5); CREATININE FOR GFR 1.29 MG/DL (0.70-1.30); FREE T4 1.29 NG/DL (0.76-1.46); GLOMERULAR FILTRATION RATE > 60.0 (>60); GLUCOSE, FASTING 106 MG/DL (70-100); HDL CHOLESTEROL 42 MG/DL (>40); LDL CHOLESTEROL 71 MG/DL (<100); NON-HDL-C 116 MG/DL; POTASSIUM SERUM 3.6 MEQ/L (3.5-5.1); SODIUM LEVEL 137 MEQ/L (136-145); TOTAL 25(OH) VITAMIN D 34.1 NG/ML (30.0-100.0); TOTAL PROTEIN 7.1 GM/DL (6.4-8.2); TRIGLYCERIDES LEVEL 225 MG/DL (<150)
[2021-08-23 16:08] LABS: HEMOGLOBIN A1c 5.1 %
== END ==
LOC: M PLALAB 09:11
PROVIDERS: ATTEND Nurse Practitioner Family
DX: E55.9 Vitamin D deficiency, unspecified (principal); I10 Essential (primary) hypertension; E78.5 Hyperlipidemia, unspecified; Z79.899 Other long term (current) drug therapy

== ENCOUNTER → 2022-03-02 | Outpatient (CLI) | payer MEDICARE, MEDICAID ==
[2022-03-02 14:49] LABS: BASO # 0.1 10^3/uL (0.0-0.2); BASO % 0.7 % (0.0-1.0); EOS # 0.2 10^3/uL (0.0-0.5); EOS % 2.5 % (0.0-3.0); HEMATOCRIT 43.8 % (42.0-52.0); HEMOGLOBIN 14.5 g/dl (13.5-17.5); LYMPH # 2.1 10^3/uL (1.5-5.0); MEAN CORPUSCULAR HEMOGLOBIN 29.5 pg (27.0-33.0); MEAN CORPUSCULAR HGB CONC 33.1 g/dl (32.0-36.5); MEAN CORPUSCULAR VOLUME 89.2 fl (80.0-96.0); MONO # 0.8 10^3/uL (0.0-0.8); MONO % 10.6 % (2.0-8.0); NEUTROPHILS # 4.5 10^3/uL (1.5-8.5); NEUTROPHILS % 58.7 % (36.0-66.0); PLATELET COUNT, AUTOMATED 287 10^3/uL (150-450); RED BLOOD COUNT 4.91 10^6/uL (4.30-6.10); WHITE BLOOD COUNT 7.6 10^3/uL (4.0-10.0)
[2022-03-02 17:56] LABS: ALBUMIN 4.6 G/DL (3.2-5.2); ALT/SGPT 73 U/L (7.0-40); BILIRUBIN,TOTAL 0.7 MG/DL (0.3-1.2); BLOOD UREA NITROGEN 12 MG/DL (9-23); CALCIUM LEVEL 9.8 MG/DL (8.5-10.1); CARBON DIOXIDE LEVEL 29 MMOL/L (20-31); CHLORIDE LEVEL 100 MMOL/L (98-107); CHOLESTEROL LEVEL 139 MG/DL (<200); CHOLESTEROL RISK RATIO 3.57 (<5); CREATININE FOR GFR 0.92 MG/DL (0.70-1.30); GLOMERULAR FILTRATION RATE > 60.0 (>60); GLUCOSE, FASTING 98 MG/DL (60-100); HDL CHOLESTEROL 38.9 MG/DL (>40); LDL CHOLESTEROL 66.9 MG/DL (<100); NON-HDL-C 100 MG/DL; POTASSIUM SERUM 3.9 MMOL/L (3.5-5.1); SODIUM LEVEL 140 MMOL/L (136-145); TOTAL PROTEIN 7.1 G/DL (5.7-8.2); TRIGLYCERIDES LEVEL 166 MG/DL (<150)
== END ==
LOC: M PLALAB 09:51
PROVIDERS: ATTEND Nurse Practitioner Family
DX: I10 Essential (primary) hypertension (principal); E55.9 Vitamin D deficiency, unspecified; E78.5 Hyperlipidemia, unspecified; Z79.899 Other long term (current) drug therapy

== ENCOUNTER 2022-06-29 00:42 | Emergency (ER) | payer MEDICARE, MEDICAID ==
[~2022-06-29] VITALS: Ht 175.3 cm; Wt 87.5 kg
[2022-06-29] MEDS ORDERED: OMEP-173 (01:18)
[2022-06-29] MEDS ORDERED: MONT10TA97 (01:18)
[2022-06-29] MEDS ORDERED: ATOR1TAB19 (01:18)
[2022-06-29] MEDS ORDERED: HYDR12.55 (01:18)
[2022-06-29 01:30] LABS: BASO # 0.1 10^3/uL (0.0-0.2); BASO % 0.5 % (0.0-1.0); EOS # 0.1 10^3/uL (0.0-0.5); EOS % 0.9 % (0.0-3.0); HEMATOCRIT 42.2 % (42.0-52.0); HEMOGLOBIN 14.7 g/dl (13.5-17.5); LYMPH # 1.8 10^3/uL (1.5-5.0); MEAN CORPUSCULAR HEMOGLOBIN 29.8 pg (27.0-33.0); MEAN CORPUSCULAR HGB CONC 34.8 g/dl (32.0-36.5); MEAN CORPUSCULAR VOLUME 85.4 fl (80.0-96.0); MONO # 0.9 10^3/uL (0.0-0.8); MONO % 5.9 % (2.0-8.0); NEUTROPHILS # 11.7 10^3/uL (1.5-8.5); NEUTROPHILS % 80.1 % (36.0-66.0); PLATELET COUNT, AUTOMATED 297 10^3/uL (150-450); RED BLOOD COUNT 4.94 10^6/uL (4.30-6.10); WHITE BLOOD COUNT 14.6 10^3/uL (4.0-10.0)
[2022-06-29 02:01] LABS: LIPASE 32 U/L (12-53)
[2022-06-29] MEDS ORDERED: ONDANSETRON 4MG 2ML VIAL IV ONE (02:30)
[2022-06-29] MEDS ORDERED: MORPHINE 4 MG/ML 1ML VIAL IV PRN (02:30)
[2022-06-29 02:31] LABS: ALBUMIN 4.3 G/DL (3.2-5.2); ALKALINE PHOSPHATASE 82 U/L (46-116); ALT/SGPT 74 U/L (7.0-40); AST/SGOT 24 U/L (<34); BILIRUBIN,DIRECT 0.2 MG/DL (<0.4); BILIRUBIN,TOTAL 0.6 MG/DL (0.3-1.2); BLOOD UREA NITROGEN 18 MG/DL (9-23); CALCIUM LEVEL 9.7 MG/DL (8.5-10.1); CARBON DIOXIDE LEVEL 26 MMOL/L (20-31); CHLORIDE LEVEL 101 MMOL/L (98-107); CREATININE FOR GFR 1.07 MG/DL (0.70-1.30); GLOMERULAR FILTRATION RATE > 60.0 (>60); GLUCOSE, FASTING 122 MG/DL (60-100); POTASSIUM SERUM 3.7 MMOL/L (3.5-5.1); SODIUM LEVEL 136 MMOL/L (136-145)
[2022-06-29 03:14] LABS: TOTAL PROTEIN 6.8 G/DL (5.7-8.2)
[2022-06-29] MEDS ORDERED: ISOVUE-370 76% 100ML VIAL As Ordered ONE (03:22)
[2022-06-29 06:15] VITALS: BP 123/70
== END 2022-06-29 06:31 | disposition home or self-care (01) ==
LOC: M ED 00:42
DX: R10.9 Unspecified abdominal pain (principal); Z79.52 Long term (current) use of systemic steroids; Z79.811 Long term (current) use of aromatase inhibitors; Z79.02 Long term (current) use of antithrombotics/antiplatelets; Z79.899 Other long term (current) drug therapy
CPT/HCPCS: 74177; 80048; 80076; 83690; 85025; 87635; 96374; 96375; 99284; J2270; J2405; Q9967

== ENCOUNTER 2022-07-21 10:37 | Emergency (ER) | payer MEDICARE, MEDICAID ==
[~2022-07-21] VITALS: Ht 182.9 cm; Wt 86.9 kg
[~2022-07-21 10:37] MED LIST changes: +ATOR1TAB19; +FLUT50SP17; -FLUTISP; +HYDR12.55; +OMEP-173
[2022-07-21] MEDS ORDERED: AZEL1SPR3 NARES (10:53)
[2022-07-21] MEDS ORDERED: LOSA50TA28 (10:53)
[2022-07-21] MEDS ORDERED: DICL100T89 (10:53)
[2022-07-21] MEDS ORDERED: LEXA1TAB PO (10:53)
[2022-07-21] MEDS ORDERED: FLUT15.820 NARES (10:53)
[2022-07-21 11:24] LABS: BASO % 0.3 % (0.0-1.0); EOS # 0.1 10^3/uL (0.0-0.5); EOS % 0.6 % (0.0-3.0); HEMATOCRIT 40.9 % (42.0-52.0); HEMOGLOBIN 14.4 g/dl (13.5-17.5); LYMPH # 1.6 10^3/uL (1.5-5.0); LYMPH % 15.8 % (24.0-44.0); MEAN CORPUSCULAR HEMOGLOBIN 30.3 pg (27.0-33.0); MEAN CORPUSCULAR HGB CONC 35.2 g/dl (32.0-36.5); MEAN CORPUSCULAR VOLUME 86.1 fl (80.0-96.0); MONO # 0.7 10^3/uL (0.0-0.8); MONO % 7.2 % (2.0-8.0); NEUTROPHILS # 7.8 10^3/uL (1.5-8.5); NEUTROPHILS % 75.6 % (36.0-66.0); PLATELET COUNT, AUTOMATED 286 10^3/uL (150-450); RED BLOOD COUNT 4.75 10^6/uL (4.30-6.10); WHITE BLOOD COUNT 10.3 10^3/uL (4.0-10.0)
[2022-07-21] MEDS ORDERED: PANTOPRAZOLE 40MG VIAL IV ONE (11:35)
[2022-07-21] MEDS ORDERED: SUCRALFATE SUSP 1GM/10ML UD PO ONE (11:35)
[2022-07-21 11:41] LABS: INR 0.9; PROTHROMBIN TIME 12.3 SECONDS (12.5-14.5)
[2022-07-21 11:48] LABS: CK-MB VALUE MASS < 1.0 NG/ML (<3.6)
[2022-07-21 11:49] LABS: LIPASE 31 U/L (12-53)
[2022-07-21 11:50] LABS: CPK CREATINE PHOSPHOKINASE 239 U/L (46-171); MB/CK RELATIVE INDEX 0.41 (< OR =4)
[2022-07-21 11:51] LABS: ALBUMIN 4.1 G/DL (3.2-5.2); ALKALINE PHOSPHATASE 86 U/L (46-116); ALT/SGPT 55 U/L (7.0-40); AST/SGOT 24 U/L (<34); BILIRUBIN,DIRECT 0.2 MG/DL (<0.4); BILIRUBIN,TOTAL 0.6 MG/DL (0.3-1.2); BLOOD UREA NITROGEN 11 MG/DL (9-23); CALCIUM LEVEL 9.3 MG/DL (8.5-10.1); CARBON DIOXIDE LEVEL 27 MMOL/L (20-31); CHLORIDE LEVEL 102 MMOL/L (98-107); CREATININE FOR GFR 0.95 MG/DL (0.70-1.30); GLOMERULAR FILTRATION RATE > 60.0 (>60); GLUCOSE, FASTING 103 MG/DL (60-100); POTASSIUM SERUM 3.7 MMOL/L (3.5-5.1); SODIUM LEVEL 138 MMOL/L (136-145); TOTAL PROTEIN 6.6 G/DL (5.7-8.2)
[2022-07-21] MEDS ORDERED: ISOVUE-370 76% 100ML VIAL As Ordered ONE (13:33)
[2022-07-21] MEDS ORDERED: CARA1TAB6 PO (14:11)
[2022-07-21] MEDS ORDERED: PROT1TAB2 PO (14:13)
[2022-07-21 15:11] VITALS: BP 125/71
== END 2022-07-21 15:23 | disposition home or self-care (01) ==
LOC: M ED 10:37
DX: K29.70 Gastritis, unspecified, without bleeding (principal); J45.909 Unspecified asthma, uncomplicated; Z79.52 Long term (current) use of systemic steroids; Z79.83 Long term (current) use of bisphosphonates; Z79.899 Other long term (current) drug therapy; Z79.811 Long term (current) use of aromatase inhibitors
CPT/HCPCS: 71045; 74177; 80048; 80076; 82550; 82553; 83690; 84443; 84484; 85025; 85610; 86850; 86900; 86901; 93005; 93041; 94760; 96374; 99285; C9113; Q9967

== ENCOUNTER → 2022-09-06 | Outpatient (CLI) | payer MEDICARE, MEDICAID ==
[~2022-09-06] MED LIST changes: +AZEL1SPR3 NARES; +CARA1TAB6 PO; +DICL100T89; +FLUT15.820 NARES; +LEXA1TAB PO; +LOSA50TA28; +PROT1TAB2 PO
[2022-09-06 11:00] LABS: BASO % 0.5 % (0.0-1.0); EOS # 0.2 10^3/uL (0.0-0.5); EOS % 2.1 % (0.0-3.0); HEMATOCRIT 43.4 % (42.0-52.0); HEMOGLOBIN 14.8 g/dl (13.5-17.5); LYMPH # 2.2 10^3/uL (1.5-5.0); LYMPH % 26.6 % (24.0-44.0); MEAN CORPUSCULAR HEMOGLOBIN 29.9 pg (27.0-33.0); MEAN CORPUSCULAR HGB CONC 34.1 g/dl (32.0-36.5); MEAN CORPUSCULAR VOLUME 87.7 fl (80.0-96.0); MONO # 0.7 10^3/uL (0.0-0.8); NEUTROPHILS % 62.1 % (36.0-66.0); PLATELET COUNT, AUTOMATED 278 10^3/uL (150-450); RED BLOOD COUNT 4.95 10^6/uL (4.30-6.10); WHITE BLOOD COUNT 8.1 10^3/uL (4.0-10.0)
[2022-09-06 11:27] LABS: ALBUMIN 4.4 G/DL (3.2-5.2); ALKALINE PHOSPHATASE 86 U/L (46-116); ALT/SGPT 76 U/L (7.0-40); AST/SGOT 25 U/L (<34); BILIRUBIN,TOTAL 0.6 MG/DL (0.3-1.2); BLOOD UREA NITROGEN 11 MG/DL (9-23); CALCIUM LEVEL 9.1 MG/DL (8.5-10.1); CARBON DIOXIDE LEVEL 29 MMOL/L (20-31); CHLORIDE LEVEL 103 MMOL/L (98-107); CHOLESTEROL LEVEL 158 MG/DL (<200); CHOLESTEROL RISK RATIO 3.93 (<5); GLOMERULAR FILTRATION RATE > 60.0 (>60); GLUCOSE, FASTING 95 MG/DL (60-100); HDL CHOLESTEROL 40.2 MG/DL (>40); NON-HDL-C 117.8 MG/DL; POTASSIUM SERUM 3.9 MMOL/L (3.5-5.1); SODIUM LEVEL 139 MMOL/L (136-145); TOTAL PROTEIN 6.8 G/DL (5.7-8.2); TRIGLYCERIDES LEVEL 214 MG/DL (<150)
[2022-09-06 11:28] LABS: TOTAL 25(OH) VITAMIN D 31.6 NG/ML (20.0-100.0)
[2022-09-06 11:29] LABS: THYROID STIMULATING HORMONE 1.836 uIU/ML (0.55-4.78)
[2022-09-06 11:30] LABS: FREE T4 1.41 NG/DL (0.89-1.76)
[2022-09-06 11:32] LABS: HEMOGLOBIN A1c 5.1 % (4.0-6.0)
== END ==
LOC: M PLALAB 08:26
PROVIDERS: ATTEND Nurse Practitioner Family
DX: I10 Essential (primary) hypertension (principal); E78.5 Hyperlipidemia, unspecified; E55.9 Vitamin D deficiency, unspecified; Z13.1 Encounter for screening for diabetes mellitus; Z79.899 Other long term (current) drug therapy

== ENCOUNTER 2022-11-07 02:39 | Emergency (ER) | payer MEDICARE, MEDICAID ==
[~2022-11-07] VITALS: Ht 175.3 cm; Wt 87.9 kg
[2022-11-07 03:09] LABS: BASO % 0.3 % (0.0-1.0); EOS # 0.1 10^3/uL (0.0-0.5); EOS % 0.6 % (0.0-3.0); HEMATOCRIT 42.7 % (42.0-52.0); HEMOGLOBIN 14.9 g/dl (13.5-17.5); LYMPH # 1.7 10^3/uL (1.5-5.0); LYMPH % 13.8 % (24.0-44.0); MEAN CORPUSCULAR HEMOGLOBIN 30.1 pg (27.0-33.0); MEAN CORPUSCULAR HGB CONC 34.9 g/dl (32.0-36.5); MEAN CORPUSCULAR VOLUME 86.3 fl (80.0-96.0); MONO # 0.6 10^3/uL (0.0-0.8); NEUTROPHILS # 9.8 10^3/uL (1.5-8.5); NEUTROPHILS % 79.7 % (36.0-66.0); PLATELET COUNT, AUTOMATED 289 10^3/uL (150-450); RED BLOOD COUNT 4.95 10^6/uL (4.30-6.10); WHITE BLOOD COUNT 12.3 10^3/uL (4.0-10.0)
[2022-11-07 03:39] LABS: CK-MB VALUE MASS < 1.0 NG/ML (<3.6)
[2022-11-07 03:40] LABS: ALBUMIN 4.4 G/DL (3.2-5.2); ALKALINE PHOSPHATASE 92 U/L (46-116); ALT/SGPT 80 U/L (7.0-40); AST/SGOT 19 U/L (<34); BILIRUBIN,DIRECT < 0.1 MG/DL (<0.4); BILIRUBIN,TOTAL 0.5 MG/DL (0.3-1.2); BLOOD UREA NITROGEN 12 MG/DL (9-23); CALCIUM LEVEL 9.3 MG/DL (8.5-10.1); CARBON DIOXIDE LEVEL 23 MMOL/L (20-31); CHLORIDE LEVEL 104 MMOL/L (98-107); CREATININE FOR GFR 0.93 MG/DL (0.70-1.30); GLOMERULAR FILTRATION RATE > 60.0 (>60); GLUCOSE, FASTING 145 MG/DL (60-100); POTASSIUM SERUM 3.9 MMOL/L (3.5-5.1); SODIUM LEVEL 143 MMOL/L (136-145); TOTAL PROTEIN 7.1 G/DL (5.7-8.2)
[2022-11-07 03:51] LABS: CPK CREATINE PHOSPHOKINASE 113 U/L (46-171); MB/CK RELATIVE INDEX 0.88 (< OR =4)
[2022-11-07 04:41] LABS: CK-MB VALUE MASS < 1.0 NG/ML (<3.6); CPK CREATINE PHOSPHOKINASE 102 U/L (46-171); MB/CK RELATIVE INDEX 0.98 (< OR =4)
[2022-11-07] MEDS ORDERED: PANTOPRAZOLE 40MG VIAL IV ONE (06:25)
[2022-11-07] MEDS ORDERED: MAALOX 30 ML SUSP *UDC PO ONE (06:25)
[2022-11-07] MEDS ORDERED: MORPHINE 4 MG/ML 1ML VIAL IV ONE (06:25)
[2022-11-07] MEDS ORDERED: HYOSCYAMINE SULFATE 0.125 MG SUBL TABLET PO ONE (06:25)
[2022-11-07] MEDS ORDERED: SUCRALFATE 1 GM TAB PO ONE (06:25)
[2022-11-07] MEDS ORDERED: ISOVUE-370 76% 100ML VIAL As Ordered ONE (07:06)
[2022-11-07] MEDS ORDERED: CARA1TAB6 PO (08:03)
[2022-11-07] MEDS ORDERED: OMEP40CA4 PO (08:03)
[2022-11-07 09:20] VITALS: BP 136/68; TEMP 98; O2SAT 93
== END 2022-11-07 09:24 | disposition home or self-care (01) ==
LOC: M ED 02:39
DX: R07.9 Chest pain, unspecified (principal); I10 Essential (primary) hypertension; E78.5 Hyperlipidemia, unspecified; K21.9 Gastro-esophageal reflux disease without esophagitis; Z79.52 Long term (current) use of systemic steroids; Z79.811 Long term (current) use of aromatase inhibitors; Z79.899 Other long term (current) drug therapy
CPT/HCPCS: 71045; 71275; 80048; 80076; 82550; 82553; 84484; 85025; 93005; 94760; 96374; 99285; C9113; Q9967

== ENCOUNTER 2023-04-23 02:45 | Emergency (ER) | payer MEDICAID, MEDICARE, OTHER ==
[2023-04-23 02:45] VITALS: TEMP 97.9
[~2023-04-23 02:45] MED LIST changes: -FLUT50SP17; +FLUTISP; +OMEP40CA4 PO
[2023-04-23] MEDS ORDERED: SUCRALFATE SUSP 1GM/10ML UD PO ONE (03:15)
[2023-04-23] MEDS ORDERED: OMEPRAZOLE 20MG CAP PO ONE (03:15)
[2023-04-23 03:32] LABS: BASO % 0.3 % (0.0-1.0); EOS # 0.1 10^3/uL (0.0-0.5); EOS % 0.5 % (0.0-3.0); HEMATOCRIT 42.9 % (42.0-52.0); HEMOGLOBIN 15.1 g/dl (13.5-17.5); LYMPH # 1.3 10^3/uL (1.5-5.0); LYMPH % 11.8 % (24.0-44.0); MEAN CORPUSCULAR HEMOGLOBIN 30.3 pg (27.0-33.0); MEAN CORPUSCULAR HGB CONC 35.2 g/dl (32.0-36.5); MONO # 0.5 10^3/uL (0.0-0.8); MONO % 4.2 % (2.0-8.0); NEUTROPHILS # 9.2 10^3/uL (1.5-8.5); NEUTROPHILS % 82.7 % (36.0-66.0); PLATELET COUNT, AUTOMATED 296 10^3/uL (150-450); RED BLOOD COUNT 4.99 10^6/uL (4.30-6.10); WHITE BLOOD COUNT 11.2 10^3/uL (4.0-10.0)
[2023-04-23 03:54] LABS: RSV AMPLIFICATION NEGATIVE (NEGATIVE)
[2023-04-23 04:06] LABS: LIPASE 29 U/L (12-53)
[2023-04-23 04:09] LABS: ALBUMIN 4.2 G/DL (3.2-5.2); ALKALINE PHOSPHATASE 82 U/L (46-116); ALT/SGPT 71 U/L (7.0-40); AST/SGOT 20 U/L (<34); BILIRUBIN,DIRECT 0.1 MG/DL (<0.4); BILIRUBIN,TOTAL 0.4 MG/DL (0.3-1.2); BLOOD UREA NITROGEN 8 MG/DL (9-23); CALCIUM LEVEL 9.6 MG/DL (8.5-10.1); CARBON DIOXIDE LEVEL 25 MMOL/L (20-31); CHLORIDE LEVEL 106 MMOL/L (98-107); CK-MB VALUE MASS < 1.0 NG/ML (<3.6); CREATININE FOR GFR 0.89 MG/DL (0.70-1.30); GLOMERULAR FILTRATION RATE > 60.0 (>60); GLUCOSE, FASTING 130 MG/DL (60-100); POTASSIUM SERUM 3.8 MMOL/L (3.5-5.1); SODIUM LEVEL 138 MMOL/L (136-145); TOTAL PROTEIN 6.7 G/DL (5.7-8.2)
[2023-04-23 04:15] LABS: CPK CREATINE PHOSPHOKINASE 108 U/L (46-171); MB/CK RELATIVE INDEX 0.92 (< OR =4)
[2023-04-23] MEDS ORDERED: KETOROLAC 30 MG/ML 1ML VIAL As Ordered ONE (04:41)
[2023-04-23] MEDS ORDERED: KETOROLAC 30 MG/ML 1ML VIAL IV ONE ×2 (04:45→05:00)
[2023-04-23] MEDS ORDERED: MORPHINE 2 MG/ML 1ML VIAL IV ONE (05:05)
[2023-04-23 05:08] LABS: CK-MB VALUE MASS < 1.0 NG/ML (<3.6)
[2023-04-23 05:09] LABS: CPK CREATINE PHOSPHOKINASE 102 U/L (46-171); MB/CK RELATIVE INDEX 0.98 (< OR =4)
[2023-04-23] MEDS ORDERED: GASTROGRAFIN SOLUTION 30ML As Ordered ONE (05:28)
[2023-04-23] MEDS: GASTROGRAFIN SOLUTION 30ML PO SCH ×2 (06:04→06:05)
[2023-04-23] MEDS ORDERED: ISOVUE-370 76% 100ML VIAL As Ordered ONE (06:46)
[2023-04-23] MEDS ORDERED: NS 1,000 ML IV ONE (08:00)
[2023-04-23] MEDS ORDERED: OMEP40CA4 PO (10:17)
[2023-04-23] MEDS ORDERED: CARA1TAB6 PO (10:18)
[2023-04-23 10:32] VITALS: BP 133/70; O2SAT 96
== END 2023-04-23 10:51 | disposition home or self-care (01) ==
LOC: M ED 02:45
DX: R07.9 Chest pain, unspecified (principal); K29.70 Gastritis, unspecified, without bleeding; E78.5 Hyperlipidemia, unspecified; I10 Essential (primary) hypertension; K21.9 Gastro-esophageal reflux disease without esophagitis; J45.909 Unspecified asthma, uncomplicated; F32.A Depression, unspecified; Z79.52 Long term (current) use of systemic steroids; Z79.02 Long term (current) use of antithrombotics/antiplatelets; Z79.811 Long term (current) use of aromatase inhibitors; Z79.83 Long term (current) use of bisphosphonates; Z79.810 Long term (current) use of selective estrogen receptor modulators (SERMs); Z79.899 Other long term (current) drug therapy
CPT/HCPCS: 71045; 74177; 80048; 80076; 82550; 82553; 83605; 83690; 84484; 85025; 87631; 93005; 93041; 94760; 96361; 96374; 96375; 99285; J1885; Q9967

== ENCOUNTER 2023-09-03 23:54 | Emergency (ER) | payer MEDICARE, MEDICAID ==
[~2023-09-03] VITALS: Ht 177.8 cm; Wt 84.9 kg
[2023-09-04 00:43] LABS: BASO % 0.3 % (0.0-1.0); EOS # 0.1 10^3/uL (0.0-0.5); EOS % 0.7 % (0.0-3.0); HEMATOCRIT 42.9 % (42.0-52.0); HEMOGLOBIN 14.7 g/dl (13.5-17.5); LYMPH # 1.7 10^3/uL (1.5-5.0); LYMPH % 15.1 % (24.0-44.0); MEAN CORPUSCULAR HEMOGLOBIN 29.3 pg (27.0-33.0); MEAN CORPUSCULAR HGB CONC 34.3 g/dl (32.0-36.5); MEAN CORPUSCULAR VOLUME 85.6 fl (80.0-96.0); MONO # 0.7 10^3/uL (0.0-0.8); MONO % 5.9 % (2.0-8.0); NEUTROPHILS # 8.9 10^3/uL (1.5-8.5); NEUTROPHILS % 77.6 % (36.0-66.0); PLATELET COUNT, AUTOMATED 287 10^3/uL (150-450); RED BLOOD COUNT 5.01 10^6/uL (4.30-6.10); WHITE BLOOD COUNT 11.5 10^3/uL (4.0-10.0)
[2023-09-04 00:59] LABS: LIPASE 35 U/L (12-53)
[2023-09-04 01:01] LABS: ALBUMIN 4.1 G/DL (3.2-5.2); ALKALINE PHOSPHATASE 93 U/L (46-116); ALT/SGPT 38 U/L (7.0-40); AST/SGOT 11 U/L (<34); BILIRUBIN,DIRECT 0.1 MG/DL (<0.4); BILIRUBIN,TOTAL 0.4 MG/DL (0.3-1.2); BLOOD UREA NITROGEN 17 MG/DL (9-23); CALCIUM LEVEL 9.6 MG/DL (8.5-10.1); CARBON DIOXIDE LEVEL 26 MMOL/L (20-31); CHLORIDE LEVEL 106 MMOL/L (98-107); CREATININE FOR GFR 1.08 MG/DL (0.70-1.30); GLOMERULAR FILTRATION RATE > 60.0 (>60); GLUCOSE, FASTING 155 MG/DL (60-100); POTASSIUM SERUM 3.6 MMOL/L (3.5-5.1); SODIUM LEVEL 139 MMOL/L (136-145); TOTAL PROTEIN 6.7 G/DL (5.7-8.2)
[2023-09-04] MEDS: FAMOTIDINE 20MG/2ML VIAL IVP ONE (04:42)
[2023-09-04 05:13] LABS: CK-MB VALUE MASS < 1.0 NG/ML (<3.6)
[2023-09-04 05:19] LABS: CPK CREATINE PHOSPHOKINASE 106 U/L (46-171); MB/CK RELATIVE INDEX 0.94 (< OR =4)
[2023-09-04] MEDS: SUCRALFATE SUSP 1GM/10ML UD PO ONE (07:26)
[2023-09-04] MEDS: METOCLOPRAMIDE INJ 10MG/2ML VIAL IV ONE (07:26)
[2023-09-04 07:46] VITALS: TEMP 97.4
[2023-09-04 10:00] VITALS: BP 118/67
[2023-09-04 10:01] LABS: HEMOGLOBIN A1c 5.1 % (4.0-6.0)
[2023-09-04] MEDS ORDERED: ONDA4TAB6 PO (10:07)
[2023-09-04 10:09] VITALS: O2SAT 96
== END 2023-09-04 10:19 | disposition home or self-care (01) ==
LOC: M ED 23:54
DX: R10.13 Epigastric pain (principal); R11.0 Nausea; K21.9 Gastro-esophageal reflux disease without esophagitis; I10 Essential (primary) hypertension; E78.5 Hyperlipidemia, unspecified; J45.909 Unspecified asthma, uncomplicated; F41.9 Anxiety disorder, unspecified; F32.A Depression, unspecified; Z90.89 Acquired absence of other organs; Z79.52 Long term (current) use of systemic steroids; Z79.02 Long term (current) use of antithrombotics/antiplatelets; Z79.810 Long term (current) use of selective estrogen receptor modulators (SERMs); Z79.811 Long term (current) use of aromatase inhibitors; Z79.899 Other long term (current) drug therapy
CPT/HCPCS: 71046; 80048; 80076; 82550; 82553; 83036; 83690; 84484; 85025; 85379; 93005; 96374; 96375; 99284; J2765

== ENCOUNTER 2024-01-10 07:48 | Emergency (ER) | payer MEDICARE, OTHER, MEDICAID ==
[~2024-01-10] VITALS: Ht 182.9 cm; Wt 90.9 kg
[~2024-01-10 07:48] MED LIST changes: +ONDA-282 PO
[2024-01-10] MEDS: IBUPROFEN 600MG TAB PO ONE (08:56)
[2024-01-10] MEDS: AUGMENTIN 875 MG TAB PO ONE (08:56)
[2024-01-10] MEDS: BENZOIN TINCTURE 60ML BTL TOP ONE (08:57)
[2024-01-10] MEDS: BOOSTRIX VACCINE (TETANUS/DIPHTH/ACEL. PERTUSSIS) 0.5ML SYR IM.IMMUN ONE (08:58)
[2024-01-10] MEDS ORDERED: AMOX875T2 PO (09:15)
[2024-01-10 09:40] VITALS: BP 125/68; TEMP 98; O2SAT 96
== END 2024-01-10 09:56 | disposition home or self-care (01) ==
LOC: M ED 07:48
DX: S61.411A Laceration without foreign body of right hand, initial encounter (principal); W54.0XXA Bitten by dog, initial encounter; K21.9 Gastro-esophageal reflux disease without esophagitis; F32.A Depression, unspecified; I10 Essential (primary) hypertension; Y92.410 Unspecified street and highway as the place of occurrence of the external cause; Y93.89 Activity, other specified; Y99.9 Unspecified external cause status; Z23 Encounter for immunization; Z79.52 Long term (current) use of systemic steroids; Z79.02 Long term (current) use of antithrombotics/antiplatelets; Z79.2 Long term (current) use of antibiotics; Z79.899 Other long term (current) drug therapy

== ENCOUNTER 2024-07-07 23:47 | Emergency (ER) | payer MEDICARE, MEDICAID ==
[~2024-07-07] VITALS: Ht 177.8 cm; Wt 90.4 kg
[~2024-07-07 23:47] MED LIST changes: +AMOX875T2 PO
[2024-07-08 00:17] VITALS: TEMP 98.2
[2024-07-08 00:53] LABS: BASO % 0.3 % (0.0-1.0); EOS # 0.2 10^3/uL (0.0-0.5); EOS % 1.9 % (0.0-3.0); HEMOGLOBIN 12.3 g/dl (13.5-17.5); LYMPH # 1.4 10^3/uL (1.5-5.0); LYMPH % 15.3 % (24.0-44.0); MEAN CORPUSCULAR HEMOGLOBIN 30.3 pg (27.0-33.0); MEAN CORPUSCULAR HGB CONC 35.1 g/dl (32.0-36.5); MEAN CORPUSCULAR VOLUME 86.2 fl (80.0-96.0); MONO # 0.6 10^3/uL (0.0-0.8); MONO % 6.9 % (2.0-8.0); NEUTROPHILS # 6.9 10^3/uL (1.5-8.5); NEUTROPHILS % 74.9 % (36.0-66.0); PLATELET COUNT, AUTOMATED 187 10^3/uL (150-450); RED BLOOD COUNT 4.06 10^6/uL (4.30-6.10); WHITE BLOOD COUNT 9.2 10^3/uL (4.0-10.0)
[2024-07-08 01:16] LABS: ALBUMIN 3.4 G/DL (3.2-5.2); ALKALINE PHOSPHATASE 75 U/L (40-129); ALT/SGPT 67 U/L (7.0-40); AST/SGOT 23 U/L (<34); BILIRUBIN,DIRECT < 0.1 MG/DL (<0.4); BILIRUBIN,TOTAL 0.3 MG/DL (0.3-1.2); BLOOD UREA NITROGEN 13 MG/DL (9-23); CARBON DIOXIDE LEVEL 25 MMOL/L (20-31); CHLORIDE LEVEL 107 MMOL/L (98-107); CK-MB VALUE MASS < 1.0 NG/ML (<3.6); CPK CREATINE PHOSPHOKINASE 97 U/L (46-171); CREATININE FOR GFR 0.99 MG/DL (0.70-1.30); GLOMERULAR FILTRATION RATE > 60.0 (>56); GLUCOSE, FASTING 122 MG/DL (60-100); MB/CK RELATIVE INDEX 1.03 (< OR =4); POTASSIUM SERUM 3.4 MMOL/L (3.5-5.1); SODIUM LEVEL 142 MMOL/L (136-145); TOTAL PROTEIN 5.9 G/DL (5.7-8.2)
[2024-07-08 04:15] VITALS: BP 137/70
[2024-07-08 04:17] VITALS: O2SAT 96
== END 2024-07-08 04:54 | disposition home or self-care (01) ==
LOC: EDBD 23:47 → M ED 23:47
DX: R07.9 Chest pain, unspecified (principal); R06.02 Shortness of breath; R05.9 Cough, unspecified; I10 Essential (primary) hypertension; J45.909 Unspecified asthma, uncomplicated; F32.A Depression, unspecified; F41.9 Anxiety disorder, unspecified; K21.9 Gastro-esophageal reflux disease without esophagitis; Z90.89 Acquired absence of other organs; Z79.02 Long term (current) use of antithrombotics/antiplatelets; Z79.52 Long term (current) use of systemic steroids; Z79.83 Long term (current) use of bisphosphonates; Z79.899 Other long term (current) drug therapy

== ENCOUNTER → 2024-07-29 | Outpatient (CLI) | payer MEDICARE, MEDICAID ==
[2024-07-29 10:40] LABS: BASO # 0.1 10^3/uL (0.0-0.2); BASO % 0.6 % (0.0-1.0); EOS # 0.1 10^3/uL (0.0-0.5); EOS % 1.8 % (0.0-3.0); HEMATOCRIT 43.6 % (42.0-52.0); LYMPH # 1.9 10^3/uL (1.5-5.0); LYMPH % 24.3 % (24.0-44.0); MEAN CORPUSCULAR HEMOGLOBIN 29.2 pg (27.0-33.0); MEAN CORPUSCULAR HGB CONC 34.4 g/dl (32.0-36.5); MONO # 0.6 10^3/uL (0.0-0.8); MONO % 7.9 % (2.0-8.0); NEUTROPHILS % 64.6 % (36.0-66.0); PLATELET COUNT, AUTOMATED 261 10^3/uL (150-450); RED BLOOD COUNT 5.13 10^6/uL (4.30-6.10); WHITE BLOOD COUNT 7.8 10^3/uL (4.0-10.0)
[2024-07-29 11:11] LABS: TOTAL 25(OH) VITAMIN D 29.9 NG/ML (20.0-100.0)
[2024-07-29 11:14] LABS: BILIRUBIN,TOTAL 0.4 MG/DL (0.3-1.2); CALCIUM LEVEL 9.4 MG/DL (8.5-10.1); CHOLESTEROL RISK RATIO 4.15 (<5); CREATININE FOR GFR 1.08 MG/DL (0.70-1.30); GLOMERULAR FILTRATION RATE 83.6 (>56); HDL CHOLESTEROL 40.7 MG/DL (>40); LDL CHOLESTEROL 62.3 MG/DL (<100); NON-HDL-C 128.3 MG/DL; POTASSIUM SERUM 3.6 MMOL/L (3.5-5.1); TOTAL PROTEIN 6.7 G/DL (5.7-8.2)
== END ==
LOC: M PLALAB 08:24
PROVIDERS: ATTEND Nurse Practitioner Family
DX: I10 Essential (primary) hypertension (principal); E55.9 Vitamin D deficiency, unspecified; E78.5 Hyperlipidemia, unspecified

== ENCOUNTER 2024-10-10 01:39 | Emergency (ER) | payer MEDICARE, MEDICAID ==
[~2024-10-10 01:39] MED LIST changes: +DICL-442; -DICL100T89
[2024-10-10 01:54] VITALS: TEMP 97.1
[2024-10-10] MEDS: KETOROLAC 30 MG/ML 1 ML VIAL IV ONE (03:47)
[2024-10-10 05:00] VITALS: BP 125/78; O2SAT 95
== END 2024-10-10 05:09 | disposition left against medical advice (07) ==
LOC: M ED 01:39
DX: R07.89 Other chest pain (principal); M25.531 Pain in right wrist; J98.11 Atelectasis; I10 Essential (primary) hypertension; E78.5 Hyperlipidemia, unspecified; K21.9 Gastro-esophageal reflux disease without esophagitis; F41.9 Anxiety disorder, unspecified; F32.A Depression, unspecified; Z79.52 Long term (current) use of systemic steroids; Z79.2 Long term (current) use of antibiotics; Z79.02 Long term (current) use of antithrombotics/antiplatelets; Z79.1 Long term (current) use of non-steroidal anti-inflammatories (NSAID); Z79.899 Other long term (current) drug therapy; Z90.89 Acquired absence of other organs; Z53.9 Procedure and treatment not carried out, unspecified reason
CPT/HCPCS: 71101; 73110; 93005; 96374; 99284; J1885

== ENCOUNTER 2024-11-19 08:41 | Day surgery (SDC) | payer MEDICARE, MEDICAID ==
[~2024-11-19] VITALS: Ht 177.8 cm; Wt 85.5 kg
[~2024-11-19 08:41] MED LIST changes: +ALBU8.5H INH; -ATOR1TAB19; +ATOR1TAB19 PO; +BREO1INH3 INH
[2024-11-19 10:36] VITALS: TEMP 97.5
[2024-11-19 10:51] VITALS: BP 115/68; O2SAT 97
[2024-11-19] MEDS ORDERED: ALBUTEROL 6.7 GM INHALER **FOR ANES. CART/OMNICELL ONLY As Ordered ONE (11:08)
== END 2024-11-19 11:09 | disposition home or self-care (01) ==
LOC: M OPP 08:41
PROVIDERS: ATTEND Surgery
DX: Z12.11 Encounter for screening for malignant neoplasm of colon (principal); Z79.51 Long term (current) use of inhaled steroids; Z79.899 Other long term (current) drug therapy; J45.909 Unspecified asthma, uncomplicated

== ENCOUNTER 2025-01-14 19:41 | Emergency (ER) | payer MEDICARE, MEDICAID ==
[~2025-01-14] VITALS: Ht 177.8 cm; Wt 87.7 kg
[2025-01-14 21:10] LABS: BASO # 0.1 10^3/uL (0.0-0.2); BASO % 0.3 % (0.0-1.0); EOS # 0.1 10^3/uL (0.0-0.5); EOS % 0.6 % (0.0-3.0); LYMPH # 1.1 10^3/uL (1.5-5.0); LYMPH % 6.4 % (24.0-44.0); MONO # 1.2 10^3/uL (0.0-0.8); MONO % 6.6 % (2.0-8.0); NEUTROPHILS # 15.1 10^3/uL (1.5-8.5); NEUTROPHILS % 85.6 % (36.0-66.0); PLATELET COUNT, AUTOMATED 259 10^3/uL (150-450)
[2025-01-14 21:40] LABS: CK-MB VALUE MASS 1.1 NG/ML (<3.6)
[2025-01-14 21:42] LABS: CPK CREATINE PHOSPHOKINASE 141.0 U/L (46-171); MB/CK RELATIVE INDEX 0.78 (< OR =4)
[2025-01-14 21:44] LABS: FREE T4 1.31 NG/DL (0.89-1.76)
[2025-01-14 21:50] LABS: ALT/SGPT 45.0 U/L (7.0-40); AST/SGOT 19.0 U/L (<34); CALCIUM LEVEL 9.2 MG/DL (8.5-10.1); CARBON DIOXIDE LEVEL 24.0 MMOL/L (20-31); CHLORIDE LEVEL 104.0 MMOL/L (98-107); CREATININE FOR GFR 1.25 MG/DL (0.70-1.30); GLOMERULAR FILTRATION RATE 70.2 (>56); POTASSIUM SERUM 3.2 MMOL/L (3.5-5.1); SODIUM LEVEL 142.0 MMOL/L (136-145)
[2025-01-14] MEDS ORDERED: ISOVUE-370 76% 100 ML VIAL As Ordered ONE (21:54)
[2025-01-14 22:11] LABS: MAGNESIUM LEVEL 1.6 MG/DL (1.8-2.4)
[2025-01-14] MEDS: NS (Normal Saline) 0.9% 1,000 ML IV ONE ×2 (22:24→23:38)
[2025-01-14 23:10] LABS: CK-MB VALUE MASS < 1.0 NG/ML (<3.6)
[2025-01-14 23:12] LABS: CPK CREATINE PHOSPHOKINASE 121 U/L (46-171)
[2025-01-14] MEDS: ONDANSETRON 4MG 2ML VIAL IV ONE (23:31)
[2025-01-15 00:30] VITALS: BP 113/59; TEMP 99.3; O2SAT 94
== END 2025-01-15 00:42 | disposition home or self-care (01) ==
LOC: M ED 19:41
DX: K52.9 Noninfective gastroenteritis and colitis, unspecified (principal); J98.11 Atelectasis; I45.10 Unspecified right bundle-branch block; K76.0 Fatty (change of) liver, not elsewhere classified; R00.0 Tachycardia, unspecified; I45.81 Long QT syndrome; I10 Essential (primary) hypertension; E78.5 Hyperlipidemia, unspecified; J45.909 Unspecified asthma, uncomplicated; F41.9 Anxiety disorder, unspecified; F32.9 Major depressive disorder, single episode, unspecified; K21.9 Gastro-esophageal reflux disease without esophagitis; Z79.899 Other long term (current) drug therapy; Z79.02 Long term (current) use of antithrombotics/antiplatelets; Z79.52 Long term (current) use of systemic steroids; Z79.1 Long term (current) use of non-steroidal anti-inflammatories (NSAID)
CPT/HCPCS: 71045; 71275; 74174; 80048; 80076; 82550; 82553; 83690; 83735; 84439; 84443; 84484; 85025; 85730; 93005; 93041; 94760; 96361; 96374; 99285; J2405; Q9967

== ENCOUNTER → 2025-02-11 | Outpatient (CLI) | payer MEDICARE, MEDICAID ==
[2025-02-11 10:10] LABS: BASO # 0.1 10^3/uL (0.0-0.2); BASO % 0.6 % (0.0-1.0); EOS # 0.1 10^3/uL (0.0-0.5); EOS % 1.5 % (0.0-3.0); LYMPH # 2.0 10^3/uL (1.5-5.0); LYMPH % 22.9 % (24.0-44.0); MONO # 0.7 10^3/uL (0.0-0.8); MONO % 7.4 % (2.0-8.0); NEUTROPHILS # 5.9 10^3/uL (1.5-8.5); NEUTROPHILS % 67.1 % (36.0-66.0); PLATELET COUNT, AUTOMATED 295 10^3/uL (150-450)
[2025-02-11 10:20] LABS: FREE T4 1.51 NG/DL (0.89-1.76)
[2025-02-11 10:22] LABS: ALT/SGPT 67.0 U/L (7.0-40); AST/SGOT 25.0 U/L (<34); CALCIUM LEVEL 10.3 MG/DL (8.5-10.1); CARBON DIOXIDE LEVEL 27.0 MMOL/L (20-31); CHLORIDE LEVEL 102.0 MMOL/L (98-107); CHOLESTEROL LEVEL 169.0 MG/DL (<200); CHOLESTEROL RISK RATIO 3.76 (<5); CREATININE FOR GFR 1.04 MG/DL (0.70-1.30); GLOMERULAR FILTRATION RATE 87.5 (>56); LDL CHOLESTEROL 80.5 MG/DL (<100); MAGNESIUM LEVEL 1.9 MG/DL (1.8-2.4); NON-HDL-C 124.1 MG/DL; POTASSIUM SERUM 3.9 MMOL/L (3.5-5.1); SODIUM LEVEL 143.0 MMOL/L (136-145); TRIGLYCERIDES LEVEL 218.0 MG/DL (<150)
[2025-02-11 10:30] LABS: ESTIMATED AVERAGE GLUCOSE 100.0 MG/DL (60-110)
== END ==
LOC: M PLALAB 07:53
PROVIDERS: ATTEND Nurse Practitioner Family
DX: E78.5 Hyperlipidemia, unspecified (principal); R73.01 Impaired fasting glucose; I10 Essential (primary) hypertension; E55.9 Vitamin D deficiency, unspecified